=== PATIENT | male | born 1960 | race Caucasian/White ===

== ENCOUNTER 2017-03-24 16:49 | Emergency (ER) | payer OTHER, MEDICAID ==
[2017-03-24] MEDS ORDERED: Nitroglycerin 2% Oint 1 GM UD Packet TOP ONE (17:06)
[2017-03-24] MEDS ORDERED: Sodium Chloride 0.9% 10 ML Syringe FLUSH PRN (17:10)
--- NOTE | 2017-03-24 17:18 | EDM.PDOC ---
[id number]: chest pain Time Seen by Provider: 03/24/17 17:00 Source: Reports: Patient, Family History Limitations: Reports: No limitations - History of Present Illness INITIAL COMMENTS - FREE TEXT/NARRATIVE: Georges comes to [facility] ED with a hx of precordial chest pain with radiation into the neck, sweats, and malaise. He was drinking at a tavern when sxs spontaneously began. He is aware of CAD, status post CABG x 1 approximately 4 years ago and PCTA x 10 with multiple stenting, most recently at the [facility] in [place], [place] approximately 1 mos ago. He reportedly was advised that he was a poor candidate for repeat CABG. He has taken ASA 325 mg and TNG SL x 3, and is on Coumadin. - Related Data Allergies/ADRs: Allergies Allergy/AdvReac Type Severity Reaction Status Date / Time No Known Allergies Allergy Verified 03/24/17 17:48 Home Meds: Home Meds Aspirin 325 mg PO DAILY 03/24/17 [History] Diazepam [Valium] 5 mg PO TID 03/24/17 [History] Metoprolol Tartrate 25 mg PO DAILY 03/24/17 [History] Nitroglycerin [Nitrostat] 0.4 mg SL ASDIRECTED PRN 03/24/17 [History] Potassium Chloride 10 meq PO DAILY 03/24/17 [History] Simvastatin [Zocor] 40 mg PO BEDTIME 03/24/17 [History] Warfarin Sliding Scale [Coumadin Sliding Scale] 03/24/17 [History] traMADol [Ultram] 50 mg PO TID 03/24/17 [History] Past Medical History Cardiovascular History: Reports: Angina, Bypass, CAD, [place], PTCA Respiratory History: Reports: Sleep apnea Musculoskeletal History: Reports: Other (see below) (trauma surgery to L forearm ) Social & Family History - Tobacco Use Smoking Status *Q: Current Some Day Smoker - Alcohol Use Alcohol Use History: Yes ED ROS GENERAL - Review of Systems Review Of Systems: See Below Constitutional: Reports: malaise, diaphoresis HEENT: Reports: No symptoms Respiratory: Reports: No Symptoms, Other (hx HUSSAIN, currently off machine) Cardiovascular: Reports: Chest pain Endocrine: Reports: no symptoms GI/Abdominal: Reports: No symptoms : Reports: no symptoms Musculoskeletal: Reports: no symptoms Skin: Reports: other (edema, "poor veins") Neurological: Reports: No Symptoms Psychiatric: Reports: No symptoms Hematologic/Lymphatic: Reports: no symptoms Immunologic: Reports: no symptoms ED EXAM, GENERAL - Physical Exam Exam: See Below Exam Limited By: No limitations General Appearance: alert, WD/WN, anxious, moderate distress Eye Exam: bilateral eye: normal inspection Ears: normal external exam, normal canal, normal TMs Nose: normal inspection Throat/Mouth: Normal inspection, Normal lips, Normal oropharynx Head: normocephalic Neck: normal inspection, supple, non-tender, full range of motion Respiratory/Chest: lungs clear, normal breath sounds, no accessory muscle use, chest non-tender Cardiovascular: normal peripheral pulses, regular rate, rhythm, no murmur, other (1+ pitting edema) GI/Abdominal: normal bowel sounds, soft, non tender, no organomegaly, no distention, no mass (Male) Exam: No hernia Rectal (Males) Exam: Deferred Back Exam: normal inspection Extremities: normal range of motion, non-tender, normal capillary refill Neurological: alert, oriented, CN II-XII intact, no motor/sensory deficits Psychiatric: normal affect, anxious Skin Exam: Warm, Dry, Intact Lymphatic: no adenopathy ED CARDIOLOGY PROCEDURES - Additional/Other Procedure(s) Other (Free Text) Procedure(s): I inserted an IOA into the proximal L lower leg without difficulty for veinous access. There was good aspiration and flow with IV pump. Course - Vital Signs Text/Narrative:: Following admission to the [facility] ED, a 12 lead ekg noted NSR w occ PVC; a port chest x ray noted mild cardiac enlargement with no infiltrates; efforts at IV insertion were unsuccessful by RN and [employer]PERVISOR, and I inserted a IOA in the L lower leg. NS was provided, with MS 8 mg IV and a TriDil Drip was started to control anginal sxs; an additional MS 8 mg IM was administered 25 min later for pain management with improvement; CBC noted Hgb 15.8 gm, WBC 8,600, plts 183,000; PT 9.4/INR 0.93; mildly elevated LFT; Troponin I <0.01; BNP 45; Case was discussed with Dr Arnold from [facility], will administer Heparin 5000 U IV, and Plavix 600 mg po, and transfer to [facility] ICU. Last Recorded V/S: Last Vital Signs Temp Pulse 97 03/24/17 16:50 Resp 18 03/24/17 16:50 BP 145/84 H 03/24/17 18:23 Pulse Ox 96 03/24/17 16:50 - Orders/Labs/Meds Orders: Active Orders 24 hr Category Date Time Status EKG Documentation Completion [RC] ASDIRECTED Care 03/24/17 17:11 Active EKG Documentation Completion [RC] ASDIRECTED Care 03/24/17 18:30 Active Chest 1V Frontal [CR] Stat Exams 03/24/17 17:10 Taken Peripheral IV Insertion Adult [OM.PC] Routine Oth 03/24/17 17:10 Ordered EKG 12 Lead [EK] Routine Ther 03/24/17 17:10 Ordered EKG 12 Lead [EK] Routine Ther 03/24/17 18:30 Ordered Labs: Laboratory Tests 03/24/17 03/24/17 03/24/17 Range/Units 17:50 17:50 17:50 WBC 8.6 (4.5-12.0) X10-3/uL RBC 5.10 (4.30-5.75) x10(6)uL Hgb 15.8 H (11.5-15.5) g/dL Hct 47.3 (30.0-51.3) % MCV 92.7 (80-96) fL MCH 30.9 (27.7-33.6) pg MCHC 33.3 (32.2-35.4) g/dL RDW 13.8 (11.5-15.5) % Plt Count 183 (125-369) X10(3)uL MPV 9.7 (7.4-10.4) fL Neut % (Auto) 46.4 (46-82) % Lymph % (Auto) 44.2 H (13-37) % [place] % (Auto) 6.8 (4-12) % Eos % (Auto) 2 (1.0-5.0) % Baso % (Auto) 1 (0-2) % Neut # (Auto) 4.0 (1.6-8.3) # Lymph # (Auto) 3.8 (0.6-5.0) # [place] # (Auto) 0.6 (0.0-1.3) # Eos # (Auto) 0.1 (0.0-0.8) # Baso # (Auto) 0.1 (0.0-0.2) # PT (8.7-11.1) INR (0.89-1.13) Sodium 138 (135-145) mmol/L Potassium 4.0 (3.5-5.3) mmol/L Chloride 105 (100-110) mmol/L Carbon Dioxide 18 L (23-29) mmol/L BUN 16 (5-20) mg/dL Creatinine 1.0 (0.6-1.3) mg/dL Est Cr Clr Drug Dosing TNP Estimated GFR (MDRD) > 60 (>60) BUN/Creatinine Ratio 16.0 (9-20) Glucose 98 (80-116) mg/dL Calcium 8.3 L (8.6-10.2) mg/dL Total Bilirubin 0.5 (0.1-1.3) mg/dL AST 64 H (5-27) IU/L ALT 68 H (14-26) IU/L Alkaline Phosphatase 77 (56-112) IU/L Troponin I < 0.01 L (0.02-0.06) NG/ML B-Natriuretic Peptide (0-100) pg/mL Total Protein 7.7 (6.0-8.0) g/dL Albumin 3.8 (3.5-5.2) g/dL Globulin 3.9 g/dL Albumin/Globulin Ratio 1.0 Ethyl Alcohol (<0.01) % 03/24/17 03/24/17 03/24/17 Range/Units 17:50 17:50 17:50 WBC (4.5-12.0) X10-3/uL RBC (4.30-5.75) x10(6)uL Hgb (11.5-15.5) g/dL Hct (30.0-51.3) % MCV (80-96) fL MCH (27.7-33.6) pg MCHC (32.2-35.4) g/dL RDW (11.5-15.5) % Plt Count (125-369) X10(3)uL MPV (7.4-10.4) fL Neut % (Auto) (46-82) % Lymph % (Auto) (13-37) % [place] % (Auto) (4-12) % Eos % (Auto) (1.0-5.0) % Baso % (Auto) (0-2) % Neut # (Auto) (1.6-8.3) # Lymph # (Auto) (0.6-5.0) # [place] # (Auto) (0.0-1.3) # Eos # (Auto) (0.0-0.8) # Baso # (Auto) (0.0-0.2) # PT 9.4 (8.7-11.1) INR 0.93 (0.89-1.13) Sodium (135-145) mmol/L Potassium (3.5-5.3) mmol/L Chloride (100-110) mmol/L Carbon Dioxide (23-29) mmol/L BUN (5-20) mg/dL Creatinine (0.6-1.3) mg/dL Est Cr Clr Drug Dosing Estimated GFR (MDRD) (>60) BUN/Creatinine Ratio (9-20) Glucose (80-116) mg/dL Calcium (8.6-10.2) mg/dL Total Bilirubin (0.1-1.3) mg/dL AST (5-27) IU/L ALT (14-26) IU/L Alkaline Phosphatase (56-112) IU/L Troponin I (0.02-0.06) NG/ML B-Natriuretic Peptide 45 (0-100) pg/mL Total Protein (6.0-8.0) g/dL Albumin (3.5-5.2) g/dL Globulin g/dL Albumin/Globulin Ratio Ethyl Alcohol 0.19 H* (<0.01) % Meds: Medications Discontinued Medications Generic Name Dose Route Start Last Admin Trade Name Freq PRN Reason Stop Dose Admin Clopidogrel Bisulfate 600 mg 03/24/17 19:19 03/24/17 19:25 Plavix PO 03/24/17 19:20 600 mg ONETIME ONE Administration Heparin Sodium (Porcine) 5,000 units 03/24/17 19:37 03/24/17 19:45 Heparin Sodium IVPUSH 03/24/17 19:38 5,000 units ONETIME ONE Administration Nitroglycerin/Dextrose 25 mg in 250 mls @ 6 mls/hr 03/24/17 17:30 03/24/17 19 :55 Nitroglycerin 25 Mg/D5w 250 Ml IV 15 mcg/min TITRATE ADAN 9 mls/hr Protocol Titration 10 MCG/MIN Morphine Sulfate 8 mg 03/24/17 17:28 03/24/17 17:36 Morphine IVPUSH 03/24/17 17:29 8 mg ONETIME ONE Administration Morphine Sulfate Confirm 03/24/17 17:29 03/24/17 18:44 Morphine Administered 03/24/17 17:30 Not Given Dose 10 mg .ROUTE .STK-MED ONE Morphine Sulfate 8 mg 03/24/17 17:33 03/24/17 18:47 Morphine IVPUSH 03/24/17 17:34 Not Given ONETIME ONE Morphine Sulfate 8 mg 03/24/17 17:50 03/24/17 17:55 Morphine IM 03/24/17 17:51 8 mg ONETIME ONE Administration Morphine Sulfate 8 mg 03/24/17 19:39 03/24/17 19:45 Morphine IM 03/24/17 19:40 8 mg ONETIME ONE Administration Nitroglycerin 1 gm 03/24/17 17:06 03/24/17 17:14 Nitro-Bid 2% TOP 03/24/17 17:07 1 gm ONETIME ONE Administration Sodium Chloride 10 ml 03/24/17 17:10 Saline Flush FLUSH ASDIRECTED PRN Keep Vein Open Departure - Departure Time of Disposition: 20:10 Disposition: DC/Tfer to Other 70 Reason for Transfer *Q: Primary PCI Indicated Condition: poor Clinical Impression: Angina pectoris, unstable, Alcohol abuse Referrals: PCP,Not In Area [Primary Care Provider] - Forms: ED Department Discharge, Interfacility Transfer [facility] Critical Care Note - Critical Care Note Total Time (mins): 75 - Problem List & Annotations (1) Angina pectoris, unstable SNOMED Code(s): 7556393 Code(s): I20.0 - UNSTABLE ANGINA Status: Acute Annotation/Comment:: 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 MS 8 mg was administered prior to transfer. - Problem List Review Problem List Initiated/Reviewed/Updated: Yes - My Orders Last 24 Hours: My Active Orders 03/24/17 17:10 Chest 1V Frontal [CR] Stat Peripheral IV Insertion Adult [OM.PC] Routine EKG 12 Lead [EK] Routine 03/24/17 17:11 EKG Documentation Completion [RC] ASDIRECTED 03/24/17 18:30 EKG Documentation Completion [RC] ASDIRECTED EKG 12 Lead [EK] Routine - Assessment/Plan Last 24 Hours: My Active Orders 03/24/17 17:10 Chest 1V Frontal [CR] Stat Peripheral IV Insertion Adult [OM.PC] Routine EKG 12 Lead [EK] Routine 03/24/17 17:11 EKG Documentation Completion [RC] ASDIRECTED 03/24/17 18:30 EKG Documentation Completion [RC] ASDIRECTED EKG 12 Lead [EK] Routine Plan: Transfer to [facility]
[2017-03-24] MEDS ORDERED: Morphine 10 MG/ML Syringe IVPUSH ONE ×2 (17:28→17:33)
[2017-03-24] MEDS ORDERED: Morphine 10 MG/ML Syringe ONE (17:29)
[2017-03-24] MEDS ORDERED: Nitroglycerin/D5W 25 MG/250 ML BOTTLE IV SCH (17:30)
[2017-03-24] MEDS ORDERED: Morphine 10 MG/ML Syringe IM ONE ×2 (17:50→19:39)
[2017-03-24 18:25] VITALS: BP 145/84
[2017-03-24] MEDS ORDERED: Clopidogrel 75 MG Tab PO ONE (19:19)
[2017-03-24] MEDS ORDERED: Heparin Sodium 5,000 Units/ML Vial IVPUSH ONE (19:37)
--- NOTE | 2017-03-26 10:46 | CR ---
INDICATION: Chest pain. CHEST: An AP upright view of the chest was obtained 03/24/2017. No comparisons were available. The heart appeared slightly prominent in size with evidence of previous cardiac surgery. Median sternotomy is noted. Overlying EKG leads are noted. Lungs appear somewhat hyperaerated, suggested COPD. This should be correlated clinically. There is some flattening of the left hemidiaphragm additionally, compatible with COPD. An active infiltrate or effusion was not identified. IMPRESSION: 1. No definite acute process. 2. ASHD with mild cardiomegaly. 3. COPD. 4. Post cardiac surgery. MTDD
== END 2017-03-24 20:25 | disposition other institution (70) ==
LOC: FB.ED 16:49
DX: I25.700 Atherosclerosis of coronary artery bypass graft(s), unspecified, with unstable angina pectoris (principal); F10.10 Alcohol abuse, uncomplicated; I25.2 Old myocardial infarction; F17.210 Nicotine dependence, cigarettes, uncomplicated; Z79.82 Long term (current) use of aspirin; Z79.01 Long term (current) use of anticoagulants; Z79.899 Other long term (current) drug therapy; Z98.61 Coronary angioplasty status
CPT/HCPCS: 36410; 36415; 71010; 80053; 83880; 84484; 85025; 85610; 93005; 96365; 96366; 96372; 96375; 96376; 99285; A9270; G0480; J1644; J2270

== ENCOUNTER 2017-03-28 13:26 | Emergency (ER) | payer MEDICAID, OTHER ==
[2017-03-28 13:41] VITALS: BP 125/78
[2017-03-28] MEDS ORDERED: Acetaminophen/HYDROcodone 325-5 MG Tab PO ONE (13:50)
[2017-03-28] MEDS ORDERED: Cephalexin 500 MG Cap PO ONE (13:50)
--- NOTE | 2017-03-28 14:01 | EDM.PDOC ---
ED HPI GENERAL MEDICAL PROBLEM - General Chief Complaint: Lower Extremity Injury/Pain Stated Complaint: LEG PAIN LEFT Time Seen by Provider: 03/28/17 13:45 Source of Information: Reports: Patient History Limitations: Reports: No Limitations - History of Present Illness INITIAL COMMENTS - FREE TEXT/NARRATIVE: 57 yo male was recently seen here in the ER for CP and had an IO started for venous access. Here for pain meds due to ongoing pain in the area of his IO placement. He was transported to [place] and got out of that hospital yesterday. He is new in the area and has not yet gotten established with a local provider. When he left the hospital he asked for pain meds and was told he would need to get them from his primary care provider. He denies fever or chills. Has noticed progressive redness of the affected leg near the sites of his IO placement. Onset Date: 03/27/17 Duration: Hour(s):, Getting Worse Location: Reports: Lower Extremity, Left Quality: Reports: Ache Severity: Moderate Improves with: Reports: None Worsens with: Reports: None Context: Reports: Other (I/O placement to area a few days ago.) Associated Symptoms: Reports: Other (Some area erythema.) Treatments GM MOBILE: Reports: Other (see below) (none) Right Lower Leg Pain Score (Numeric/FACES): 8 - Related Data Allergies Allergy/AdvReac Type Severity Reaction Status Date / Time No Known Allergies Allergy Verified 03/28/17 13:39 Home Meds: Home Meds Aspirin 325 mg PO DAILY 03/24/17 [History] Diazepam [Valium] 5 mg PO TID 03/24/17 [History] Metoprolol Tartrate 25 mg PO DAILY 03/24/17 [History] Nitroglycerin [Nitrostat] 0.4 mg SL ASDIRECTED PRN 03/24/17 [History] Potassium Chloride 10 meq PO DAILY 03/24/17 [History] Simvastatin [Zocor] 40 mg PO BEDTIME 03/24/17 [History] traMADol [Ultram] 50 mg PO TID 03/24/17 [History] Acetaminophen/HYDROcodone [[place] 325-5 MG] 1 - 2 tab PO Q6H PRN #20 tab [Rx] Aspirin 325 mg PO DAILY 03/28/17 [History] Cephalexin [IJD: Cephalexin] 500 mg PO Q6H #30 cap 03/28/17 [Rx] Clopidogrel [Plavix] 75 mg PO DAILY 03/28/17 [History] Past Medical History Cardiovascular History: Reports: Angina, Bypass, CAD, Heart Failure, High Cholesterol, Hypertension, [place], PTCA Respiratory History: Reports: COPD, Sleep Apnea Other Respiratory History: supplemental oxygen at home Musculoskeletal History: Reports: Other (See Below) - Past Surgical History Cardiovascular Surgical History: Reports: Coronary Artery Bypass, Coronary Artery Stent Social & Family History - Tobacco Use Smoking Status *Q: Former Smoker Years of Tobacco use: 40 Packs/Tins Daily: 1 Used Tobacco, but Quit: Yes Month Tobacco Last Used: since last Friday Second Hand Smoke Exposure: Yes - Caffeine Use Caffeine Use: Reports: None - Recreational Drug Use Recreational Drug Use: No Review of Systems - Review of Systems Review Of Systems: See Below Constitutional: Reports: No Symptoms Respiratory: Reports: No Symptoms Cardiovascular: Reports: No Symptoms GI/Abdominal: Reports: No Symptoms Musculoskeletal: Reports: Leg Pain (L johnson) Skin: Reports: Erythema (near site of I/O placement) Neurological: Reports: No Symptoms Trauma Exam - Physical Exam Exam: See Below Exam Limited By: No Limitations General Appearance: Reports: Alert, WD/WN, No Apparent Distress Head: Reports: Atraumatic, Normocephalic Extremities: Tenderness (L anterior johnson.) Neurologic: Reports: No Motor/Sensory Deficits, Alert, Normal Mood/Affect, Oriented x 3 Skin: Reports: Warm/Dry, Other (erythema to the left anterior johnson associated with some increased warmth. No swelling.) Course - Vital Signs Text/Narrative:: Keflex 500 mg po, [place] 1 po Last Recorded V/S: Last Vital Signs Temp 36.6 C 03/28/17 13:40 Pulse 110 H 03/28/17 13:40 Resp 20 03/28/17 13:40 BP 125/78 03/28/17 13:40 Pulse Ox 98 03/28/17 13:40 - Orders/Labs/Meds Meds: Medications Discontinued Medications Generic Name Dose Route Start Last Admin Trade Name Freq PRN Reason Stop Dose Admin Hydrocodone Bitart/Acetaminophen 1 tab 03/28/17 13:50 03/28/17 13:58 [place] 325-5 Mg PO 03/28/17 13:51 1 tab ONETIME ONE Administration Cephalexin 500 mg 03/28/17 13:50 03/28/17 13:58 Keflex PO 03/28/17 13:51 500 mg ONETIME ONE Administration Departure - Departure Time of Disposition: 14:04 Disposition: Home, Self-Care 01 Condition: fair Clinical Impression: Cellulitis Qualifiers: Site of cellulitis: extremity Site of cellulitis of extremity: lower extremity Laterality: left Qualified Code(s): L03.116 - Cellulitis of left lower limb - Discharge Information Prescriptions: Acetaminophen/HYDROcodone [[place] 325-5 MG] 1 - 2 tab PO Q6H PRN #20 tab PRN Reason: Pain Cephalexin [IJD: Cephalexin] 500 mg PO Q6H #30 cap Referrals: Kevin Mckenna MD [Primary Care Provider] - Forms: ED Department Discharge Care Plan Goals: Keep left leg elevated. Take cephalexin every 6 hrs. Take acetaminophen or [place] for pain relief as needed. Recheck on Friday in urgent care.
== END 2017-03-28 14:05 | disposition home or self-care (01) ==
LOC: FB.ED 13:26
DX: L03.116 Cellulitis of left lower limb (principal); I25.2 Old myocardial infarction; I11.0 Hypertensive heart disease with heart failure; I50.9 Heart failure, unspecified; I25.810 Atherosclerosis of coronary artery bypass graft(s) without angina pectoris; E78.00 Pure hypercholesterolemia, unspecified; Z79.82 Long term (current) use of aspirin; Z79.899 Other long term (current) drug therapy; Z95.1 Presence of aortocoronary bypass graft; Z95.5 Presence of coronary angioplasty implant and graft; Z87.891 Personal history of nicotine dependence
CPT/HCPCS: 99283; A9270

== ENCOUNTER 2017-04-20 21:50 | Emergency (ER) | payer MEDICAID ==
[2017-04-20 22:58] VITALS: BP 130/76
--- NOTE | 2017-04-21 02:52 | ER ---
DATE SEEN: 04/20/2017 REASON FOR VISIT: Pain, right foot. HISTORY OF PRESENT ILLNESS: A 57-year-old male who fell from the second rung of a ladder, landed on the right foot, felt a pop, complains of pain and swelling. This happened today. REVIEW OF SYSTEMS: No fever. PAST MEDICAL HISTORY: CHF, alcohol abuse, COPD. CURRENT MEDICATIONS: Reviewed. ALLERGIES: No known allergies. PHYSICAL EXAMINATIONS: GENERAL: Nontoxic, overweight. VITAL SIGNS: Blood pressure is 144/78, temperature is 98.0. EXTREMITIES: Right foot showed moderate swelling and effusion of the dorsum and exquisite tenderness to palpation but normal peripheral pulses and capillary refills. DIAGNOSTIC DATA: X-ray of the right foot was negative. IMPRESSION: Sprain, foot. PLAN: Ice, elevation, ibuprofen as needed, and return to the clinic as needed. /[id number] YAIR/SHAILESH
--- NOTE | 2017-04-21 10:35 | CR ---
INDICATION: Pain after jumping off a ladder and hearing a "pop". RIGHT FOOT: Three views of the right foot revealed a moderate to moderately large plantar calcaneal spur. Minimal degenerative changes are noted at the first metatarsophalangeal joint. A definite fracture, dislocation, or other significant bone or joint abnormality was not identified. The Achilles tendon has an intact appearance. IMPRESSION: No acute fracture or dislocation. [facility]
== END 2017-04-20 22:56 | disposition home or self-care (01) ==
LOC: FB.ED 21:50
DX: S93.601A Unspecified sprain of right foot, initial encounter (principal); W11.XXXA Fall on and from ladder, initial encounter; I50.9 Heart failure, unspecified; J44.9 Chronic obstructive pulmonary disease, unspecified
CPT/HCPCS: 73630-RT; 99283

== ENCOUNTER 2017-06-17 17:51 | Emergency (ER) | payer MEDICAID ==
[2017-06-17 18:03] VITALS: BP 154/78
--- NOTE | 2017-06-17 18:11 | EDM.PDOC ---
ED HPI GENERAL MEDICAL PROBLEM - General Stated Complaint: LEG PAIN Time Seen by Provider: 06/17/17 17:51 Source of Information: Reports: Patient, Family History Limitations: Reports: Respiratory Distress - History of Present Illness INITIAL COMMENTS - FREE TEXT/NARRATIVE: 57 years old w m with a h/o COPD came to the ed due lower extremity pain and swelling, unable to ambulate. Pt was doing the "Walk for the kids" from [place] to [facility] a few days ago, after which the legs were starting to swell and be painful. Pt denies CHF, DVT, LE or any other acute med issues but COPD for whic he takes 3 liter O2 by NC. No Trauma. Onset: Gradual, Unknown/Unsure Onset Date: 06/13/17 Onset Time: 08:00 Duration: Day(s):, Getting Worse Location: Reports: Lower Extremity, Left, Lower Extremity, Right Quality: Reports: Burning, Dull, Pressure Severity: Moderate Improves with: Reports: Cold Therapy, Medication, Other (elevation) Worsens with: Reports: Other (walking) Context: Reports: Other (walking for 9 hours) Right Feet Pain Score (Numeric/FACES): 9 - Related Data Allergies Allergy/AdvReac Type Severity Reaction Status Date / Time ketorolac [From Toradol] Allergy Vomiting Verified 06/17/17 20:45 Home Meds: Home Meds Diazepam [Valium] 5 mg PO TID 03/24/17 [History] Metoprolol Tartrate 50 mg PO DAILY 03/24/17 [History] Nitroglycerin [Nitrostat] 0.4 mg SL ASDIRECTED PRN 03/24/17 [History] Potassium Chloride 10 meq PO DAILY 03/24/17 [History] Simvastatin [Zocor] 40 mg PO BEDTIME 03/24/17 [History] traMADol [Ultram] 50 mg PO TID 03/24/17 [History] Cephalexin [IJD: Cephalexin] 500 mg PO Q6H #30 cap 03/28/17 [Rx] Clopidogrel [Plavix] 75 mg PO DAILY 03/28/17 [History] Aspirin 1 tab PO DAILY 06/17/17 [History] Past Medical History HEENT History: Reports: Cataract, Impaired Vision Other HEENT History: wears glasses Cardiovascular History: Reports: Angina, Bypass, CAD, Heart Failure, High Cholesterol, Hypertension, [place], PTCA, Stents Respiratory History: Reports: COPD, Sleep Apnea Other Respiratory History: supplemental oxygen at home Musculoskeletal History: Reports: Other (See Below) - Infectious Disease History Infectious Disease History: Reports: Chicken Pox, Measles - Past Surgical History Cardiovascular Surgical History: Reports: Coronary Artery Bypass, Coronary Artery Stent Social & Family History - Tobacco Use Smoking Status *Q: Former Smoker Years of Tobacco use: 25 Packs/Tins Daily: 1 Used Tobacco, but Quit: Yes Month Tobacco Last Used: [email or web address] Second Hand Smoke Exposure: Yes - Caffeine Use Caffeine Use: Reports: Coffee - Recreational Drug Use Recreational Drug Use: No ED ROS GENERAL - Review of Systems Review Of Systems: See Below Constitutional: Reports: No Symptoms HEENT: Reports: No Symptoms Respiratory: Reports: No Symptoms Cardiovascular: Reports: No Symptoms Endocrine: Reports: No Symptoms GI/Abdominal: Reports: No Symptoms : Reports: No Symptoms Musculoskeletal: Reports: Muscle Pain (lower extr.) Skin: Reports: No Symptoms Neurological: Reports: No Symptoms Psychiatric: Reports: No Symptoms Hematologic/Lymphatic: Reports: No Symptoms Immunologic: Reports: No Symptoms ED EXAM, GENERAL - Physical Exam Exam: See Below Exam Limited By: Other (leg pain) General Appearance: Alert, WD/WN, Mild Distress, Moderate Distress Eye Exam: Bilateral Eye: Normal Inspection Ears: Normal External Exam Ear Exam: Bilateral Ear: Auricle Normal Nose: Normal Inspection, Normal Mucosa Throat/Mouth: Normal Inspection, Normal Lips Head: Atraumatic, Normocephalic Neck: Normal Inspection, Supple, Non-Tender Respiratory/Chest: No Respiratory Distress, Lungs Clear, Normal Breath Sounds, No Accessory Muscle Use, Chest Non-Tender Cardiovascular: Normal Peripheral Pulses, Regular Rate, Rhythm, No JVD, No Murmur, Other (nonpitting edema lower extr. ) Peripheral Pulses: 1+: Femoral (L), Femoral (R) GI/Abdominal: Normal Bowel Sounds, Soft, Non-Tender, No Organomegaly, No Abnormal Bruit, No Mass (Male) Exam: Deferred Rectal (Males) Exam: Deferred Back Exam: Normal Inspection, Full Range of Motion Extremities: Pedal Edema (nonpitting), Shannan's Sign (negative), Leg Pain Neurological: Alert, Oriented, CN II-XII Intact, Normal Cognition, No Motor/ Sensory Deficits, Abnormal Gait (due to lowr extr.edema) Psychiatric: Normal Affect, Normal Mood Skin Exam: Warm, Dry, Intact, Normal Color, No Rash Lymphatic: No Adenopathy Course - Vital Signs Text/Narrative:: 57 years old w m with a h/o COPD came to the ed due lower extremity pain and swelling, unable to ambulate. Pt was doing the "Walk [place] the kids" from [place] to [facility] a few days ago, after which the legs were starting to swell and be painful. Pt denies CHF, DVT, LE or any other acute med issues but COPD for whic he takes 3 liter O2 by NC. No Trauma. The allergy list was not updated at the time. PE: WNWD WM with non pitting edema lower extremities. Imaging: US doppler lower extremities: Neg for DVT CXR: NAD Labs: CBC, BMP, Troponin wer all neg. BNP was 150 and the Ca was 8.5 Impression: Lymphedema both lower extremities Tx: Ultram (pt is allergic to Motrin/Toradol), TOÑO Plan: D/C with instructions, TOÑO wrap at daytime, Bryn socks. Last Recorded V/S: Last Vital Signs Temp 36.3 C 06/17/17 20:55 Pulse 86 06/17/17 20:55 Resp 16 06/17/17 20:55 BP 154/78 H 06/17/17 18:00 Pulse Ox 99 06/17/17 20:55 - Orders/Labs/Meds Orders: Active Orders 24 hr Category Date Time Status CXR [Chest 1V Frontal] [CR] Stat Exams 06/17/17 17:56 Taken VL Duplex Lwr Ext Veins Comp [US] Stat Exams 06/17/17 19:21 Taken CULTURE BLOOD [BC] Urgent Lab 06/17/17 18:35 Received Labs: Laboratory Tests 06/17/17 06/17/17 06/17/17 Range/Units 18:35 18:35 18:35 WBC 6.7 (4.5-12.0) X10-3/uL RBC 4.85 (4.30-5.75) x10(6)uL Hgb 14.8 (11.5-15.5) g/dL Hct 45.1 (30.0-51.3) % MCV 93.0 (80-96) fL MCH 30.5 (27.7-33.6) pg MCHC 32.8 (32.2-35.4) g/dL RDW 13.4 (11.5-15.5) % Plt Count 214 (125-369) X10(3)uL MPV 9.4 (7.4-10.4) fL Neut % (Auto) 49.1 (46-82) % Lymph % (Auto) 41.2 H (13-37) % [place] % (Auto) 6.7 (4-12) % Eos % (Auto) 2 (1.0-5.0) % Baso % (Auto) 1 (0-2) % Neut # (Auto) 3.4 (1.6-8.3) # Lymph # (Auto) 2.7 (0.6-5.0) # [place] # (Auto) 0.4 (0.0-1.3) # Eos # (Auto) 0.1 (0.0-0.8) # Baso # (Auto) 0.1 (0.0-0.2) # Sodium 142 (135-145) mmol/L Potassium 4.2 (3.5-5.3) mmol/L Chloride 107 (100-110) mmol/L Carbon Dioxide 26 (23-29) mmol/L BUN 9 (5-20) mg/dL Creatinine 0.7 (0.6-1.3) mg/dL Est Cr Clr Drug Dosing TNP Estimated GFR (MDRD) > 60 (>60) BUN/Creatinine Ratio 12.9 (9-20) Glucose 92 (80-116) mg/dL Calcium 8.4 L (8.6-10.2) mg/dL Troponin I (0.02-0.06) NG/ML B-Natriuretic Peptide 150 H (0-100) pg/mL 06/17/17 Range/Units 18:35 WBC (4.5-12.0) X10-3/uL RBC (4.30-5.75) x10(6)uL Hgb (11.5-15.5) g/dL Hct (30.0-51.3) % MCV (80-96) fL MCH (27.7-33.6) pg MCHC (32.2-35.4) g/dL RDW (11.5-15.5) % Plt Count (125-369) X10(3)uL MPV (7.4-10.4) fL Neut % (Auto) (46-82) % Lymph % (Auto) (13-37) % [place] % (Auto) (4-12) % Eos % (Auto) (1.0-5.0) % Baso % (Auto) (0-2) % Neut # (Auto) (1.6-8.3) # Lymph # (Auto) (0.6-5.0) # [place] # (Auto) (0.0-1.3) # Eos # (Auto) (0.0-0.8) # Baso # (Auto) (0.0-0.2) # Sodium (135-145) mmol/L Potassium (3.5-5.3) mmol/L Chloride (100-110) mmol/L Carbon Dioxide (23-29) mmol/L BUN (5-20) mg/dL Creatinine (0.6-1.3) mg/dL Est Cr Clr Drug Dosing Estimated GFR (MDRD) (>60) BUN/Creatinine Ratio (9-20) Glucose (80-116) mg/dL Calcium (8.6-10.2) mg/dL Troponin I < 0.01 L (0.02-0.06) NG/ML B-Natriuretic Peptide (0-100) pg/mL Meds: Medications Discontinued Medications Generic Name Dose Route Start Last Admin Trade Name Freq PRN Reason Stop Dose Admin Ketorolac Tromethamine 60 mg 06/17/17 19:13 06/17/17 20:44 Toradol IM 06/17/17 19:14 Not Given ONETIME ONE Tramadol HCl 100 mg 06/17/17 20:24 06/17/17 20:47 Ultram PO 06/17/17 20:25 100 mg ONETIME ONE Administration Departure - Departure Time of Disposition: 20:18 Disposition: Home, Self-Care 01 Condition: Good Clinical Impression: Lymphedema of both lower extremities - Discharge Information Instructions: Lymphedema Referrals: Kevin Mckenna MD [Primary Care Provider] - Forms: ED Department Discharge Additional Instructions: Rest, ICE and elevation, TOÑO wrap during the daytime. Please take Ultram for pain ( as you are allergic to toradol), please f/u, come back if worse. - My Orders Last 24 Hours: My Active Orders 06/17/17 17:56 CXR [Chest 1V Frontal] [CR] Stat 06/17/17 18:35 CULTURE BLOOD [BC] Urgent 06/17/17 19:21 VL Duplex Lwr Ext Veins Comp [US] Stat - Assessment/Plan Last 24 Hours: My Active Orders 06/17/17 17:56 CXR [Chest 1V Frontal] [CR] Stat 06/17/17 18:35 CULTURE BLOOD [BC] Urgent 06/17/17 19:21 VL Duplex Lwr Ext Veins Comp [US] Stat
[2017-06-17] MEDS ORDERED: Ketorolac 60 MG/2 ML SDV IM ONE (19:13)
[2017-06-17] MEDS ORDERED: traMADol 50 MG Tab PO ONE ×2 (20:24→20:26)
--- NOTE | 2017-06-18 10:44 | US ---
INDICATION: Swelling of both lower extremities. Question DVT. DUPLEX ULTRASOUND, RIGHT LOWER EXTREMITY VEINS: Utilizing 2-D real time, duplex Doppler spectral analysis, and color flow imaging, examination of the right lower extremity veins was obtained. It was difficult due to the patient' s edema in the calf areas. Portions of the calf deep veins were not adequately visualized. As visualized, they appear to be patent with compressibility and color flow. Valvular competence was not evaluated. IMPRESSION: No evidence of DVT. DUPLEX ULTRASOUND, LEFT LOWER EXTREMITY VEINS: Utilizing 2-D real time, duplex Doppler spectral analysis, and color flow imaging, examination of the left lower extremity veins was obtained. It was difficult due to the patient's edema in the calf areas. Portions of the calf deep veins were not adequately visualized. As visualized, they appear to be patent with compressibility and color flow. Valvular competence was not evaluated. IMPRESSION: No evidence of DVT. MTDD
--- NOTE | 2017-06-18 11:01 | CR ---
INDICATION: Leg swelling. CHEST: An AP upright portable view of the chest was obtained 06/17/2017 and was compared with 03/24/2017. The previous study was also an AP upright view. The heart appears slightly increased in size compared with the previous study. It does appear to be slightly enlarged. Evidence of previous median sternotomy is again noted. The aorta is tortuous and calcified in the arch area. The lungs appear to be somewhat hyperaerated. No evidence of CHF is identified , however. Also, no evidence of an active infiltrate or effusion was seen. There is an appearance of a semi-circular density behind the heart at the border of the spine on the left, in the left lower lobe area. This could represent a nodular mass in the left lower lobe. An area of pneumonia could also be present. Follow-up PA and lateral views of the chest may be helpful for further evaluation, as well as comparison with chest x-rays prior to March of 2017, and also possibly CT without and with IV contrast as clinically necessary. This area of nodular density measures up to approximately 39 mm. IMPRESSION: 1. No acute process. 2. Probable progressive ASHD, slightly increased heart size suggested. 3. Probable COPD. 4. Post median sternotomy. 5. There is a density behind the heart of questionable etiology. It may have been present on the previous study, but was not defined as such. Etiology indeterminate. The possibility of a mass cannot be excluded. This is seen in the area of the left lower lobe, behind the heart at the border of the spine. A lateral view of the chest - PA and lateral views - may be helpful, as well as x-rays of the chest prior to March of 2017, as well as possibly CT of the chest without and with contrast as necessary. Report was called to Dr. Brush at [address] Dwyer, 06/18/2017. [facility]
== END 2017-06-17 20:55 | disposition home or self-care (01) ==
LOC: FB.ED 17:51
DX: I89.0 Lymphedema, not elsewhere classified (principal); I11.0 Hypertensive heart disease with heart failure; I50.9 Heart failure, unspecified; I25.10 Atherosclerotic heart disease of native coronary artery without angina pectoris; J44.9 Chronic obstructive pulmonary disease, unspecified; E78.00 Pure hypercholesterolemia, unspecified; I25.2 Old myocardial infarction; Z79.899 Other long term (current) drug therapy; Z79.891 Long term (current) use of opiate analgesic; Z95.5 Presence of coronary angioplasty implant and graft; Z95.1 Presence of aortocoronary bypass graft; Z87.891 Personal history of nicotine dependence; Z88.5 Allergy status to narcotic agent
CPT/HCPCS: 36415; 71010; 80048; 83880; 84484; 85025; 87040; 93970; 99284; A9270

== ENCOUNTER 2017-06-25 21:51 | Emergency (ER) | payer MEDICAID ==
--- NOTE | 2017-06-25 21:54 | EDM.PDOC ---
ED HPI GENERAL MEDICAL PROBLEM - General Stated Complaint: BEE STING Time Seen by Provider: 06/25/17 21:54 Source of Information: Reports: Patient History Limitations: Reports: No Limitations - History of Present Illness INITIAL COMMENTS - FREE TEXT/NARRATIVE: 57 yo M who presented to the ER following a Bee sting to the right upper extremity and back. C/o severe pain at the site of the sting. [place] very dizzy after the sting and called the EMS. En route to the hospital, patient was given Epipen and benadryl and he was already feeling better on arrival to the ER. Rates the pain on the right Forearm as 6/10 and requested which normally works for his pain. No SOB, Chest pain or hypotension Onset: Today Worsens with: Reports: None Associated Symptoms: Reports: No Other Symptoms all over body Pain Score (Numeric/FACES): 9 - Related Data Allergies Allergy/AdvReac Type Severity Reaction Status Date / Time ketorolac [From Toradol] Allergy Vomiting Verified 06/25/17 21:58 Home Meds: Home Meds Diazepam [Valium] 5 mg PO BID 03/24/17 [History] Metoprolol Tartrate 50 mg PO DAILY 03/24/17 [History] Nitroglycerin [Nitrostat] 0.4 mg SL ASDIRECTED PRN 03/24/17 [History] Potassium Chloride 10 meq PO DAILY 03/24/17 [History] Simvastatin [Zocor] 40 mg PO BEDTIME 03/24/17 [History] traMADol [Ultram] 50 mg PO TID 03/24/17 [History] Cephalexin [IJD: Cephalexin] 500 mg PO Q6H #30 cap 03/28/17 [Rx] Clopidogrel [Plavix] 75 mg PO DAILY 03/28/17 [History] Aspirin 1 tab PO DAILY 06/17/17 [History] Budesonide/Formoterol Fumarate [Symbicort 160-4.5 Mcg Inhaler] 1 puff INH DAILY PRN 06/25/17 [History] Famotidine [Pepcid] 20 mg PO BID #10 tablet 06/25/17 [Rx] diphenhydrAMINE [Benadryl] 25 mg PO Q6H PRN #30 bottle 06/25/17 [Rx] predniSONE 40 mg PO WITHBREAKFAST #10 tablet 06/25/17 [Rx] traMADol HCl [Ultram] 50 mg PO TID PRN #20 tablet 06/25/17 [Rx] Past Medical History HEENT History: Reports: Cataract, Impaired Vision Other HEENT History: wears glasses Cardiovascular History: Reports: Angina, Bypass, CAD, Heart Failure, High Cholesterol, Hypertension, [place], PTCA, Stents Respiratory History: Reports: COPD, Sleep Apnea Other Respiratory History: supplemental oxygen at home Musculoskeletal History: Reports: Other (See Below) - Infectious Disease History Infectious Disease History: Reports: Chicken Pox, Measles - Past Surgical History Cardiovascular Surgical History: Reports: Coronary Artery Bypass, Coronary Artery Stent Social & Family History - Tobacco Use Smoking Status *Q: Former Smoker Years of Tobacco use: 25 Packs/Tins Daily: 1 Used Tobacco, but Quit: Yes Month Tobacco Last Used: [email or web address] Second Hand Smoke Exposure: Yes - Caffeine Use Caffeine Use: Reports: Coffee - Alcohol Use Days Per Week of Alcohol Use: 0 - Recreational Drug Use Recreational Drug Use: No ED ROS GENERAL - Review of Systems Review Of Systems: See Below HEENT: Reports: No Symptoms Respiratory: Reports: No Symptoms Cardiovascular: Reports: No Symptoms Endocrine: Reports: No Symptoms GI/Abdominal: Reports: No Symptoms Musculoskeletal: Reports: No Symptoms Skin: Reports: No Symptoms Neurological: Reports: No Symptoms Psychiatric: Reports: No Symptoms Hematologic/Lymphatic: Reports: No Symptoms Immunologic: Reports: No Symptoms ED EXAM, GENERAL - Physical Exam Exam: See Below Exam Limited By: No Limitations General Appearance: Alert, WD/WN, No Apparent Distress Eye Exam: Bilateral Eye: PERRL Ears: Normal External Exam, Normal Canal, Hearing Grossly Normal, Normal TMs Nose: Normal Inspection, Normal Mucosa, No Blood Throat/Mouth: Normal Inspection, Normal Lips, No Airway Compromise Head: Atraumatic, Normocephalic Neck: Normal Inspection, Supple, Non-Tender, Full Range of Motion Respiratory/Chest: No Respiratory Distress, Lungs Clear Cardiovascular: Normal Peripheral Pulses, Regular Rate, Rhythm, No Edema, No Murmur GI/Abdominal: Normal Bowel Sounds, Soft, Non-Tender, No Organomegaly, No Distention Back Exam: Normal Inspection, Full Range of Motion Extremities: Normal Inspection, Normal Range of Motion, Non-Tender Neurological: Alert, Oriented, CN II-XII Intact, Normal Cognition, No Motor/ Sensory Deficits Psychiatric: Normal Affect, Normal Mood Skin Exam: Warm Lymphatic: No Adenopathy Course - Vital Signs Last Recorded V/S: Last Vital Signs Temp 37.1 C 06/25/17 21:55 Pulse 103 H 06/25/17 21:55 Resp 15 06/25/17 21:55 BP 122/77 06/25/17 21:55 Pulse Ox 98 06/25/17 21:55 - Orders/Labs/Meds Meds: Medications Discontinued Medications Generic Name Dose Route Start Last Admin Trade Name Freq PRN Reason Stop Dose Admin Diphenhydramine HCl 50 mg 06/25/17 22:10 06/25/17 22:19 Benadryl PO 06/25/17 22:11 50 mg ONETIME ONE Administration Famotidine 20 mg 06/25/17 22:10 06/25/17 22:20 Pepcid PO 06/25/17 22:11 20 mg ONETIME ONE Administration Prednisone 60 mg 06/25/17 22:09 06/25/17 22:20 Prednisone PO 06/25/17 22:10 60 mg ONETIME ONE Administration Tramadol HCl 50 mg 06/25/17 22:11 06/25/17 22:21 Ultram PO 06/25/17 22:12 50 mg ONETIME ONE Administration Departure - Departure Time of Disposition: 22:59 Disposition: Home, Self-Care 01 Condition: Good Clinical Impression: Bee sting allergy - Discharge Information Prescriptions: Famotidine [Pepcid] 20 mg PO BID #10 tablet diphenhydrAMINE [Benadryl] 25 mg PO Q6H PRN #30 bottle PRN Reason: allergic reaction predniSONE 40 mg PO WITHBREAKFAST #10 tablet traMADol HCl [Ultram] 50 mg PO TID PRN #20 tablet PRN Reason: Pain Instructions: Insect Bite, Bee, Wasp, or Hornet Sting Referrals: PCP,Unknown [Primary Care Provider] - Forms: ED Department Discharge Additional Instructions: Follow with PCP Tramadol for pain Return if symptoms worsen Call your Physician or Return to Emergency Department if: * Your condition worsens in any way. * You develop fever greater than 100.4. * You have vomitting that does not stop with medications. * You have pain that is not controlled with medications.
[2017-06-25] MEDS ORDERED: predniSONE 20 MG Tab PO ONE (22:09)
[2017-06-25] MEDS ORDERED: Famotidine 20 MG Tab PO ONE (22:10)
[2017-06-25] MEDS ORDERED: diphenhydrAMINE 50 MG Cap PO ONE (22:10)
[2017-06-25] MEDS ORDERED: traMADol 50 MG Tab PO ONE ×2 (22:11→22:32)
[2017-06-25 22:58] VITALS: BP 116/68
== END 2017-06-25 22:50 | disposition home or self-care (01) ==
LOC: FB.ED 21:51
DX: T63.441A Toxic effect of venom of bees, accidental (unintentional), initial encounter (principal); R42 Dizziness and giddiness
CPT/HCPCS: 99282; A9270

== ENCOUNTER 2017-07-26 21:58 | Emergency (ER) | payer MEDICAID ==
[2017-07-26] MEDS ORDERED: Morphine 4 MG/ML Syringe IM ONE (22:40)
[2017-07-27] MEDS ORDERED: Sodium Chloride 0.9% 500 ML IV ONE (00:08)
[2017-07-27] MEDS ORDERED: LORazepam 2 MG/ML MDV IVPUSH ONE (00:10)
[2017-07-27] MEDS ORDERED: traMADol 50 MG Tab PO ONE (00:29)
[2017-07-27 04:26] VITALS: BP 99/64
--- NOTE | 2017-07-28 13:36 | CR ---
INDICATION: Chest pain. CHEST: PA and lateral views of the chest were obtained 07/26/2017 and compared with 06/17/2017 and 03/24/2017, again revealing the heart to be enlarged with post median sternotomy change. Findings remain compatible with COPD. The heart is enlarged. The aorta is somewhat tortuous with calcification suggested in the arch. A definite active infiltrate or effusion was not identified. Mild degenerative changes are noted in the lower thoracic spine. IMPRESSION: 1. No definite acute process. 2. COPD. 3. Post-surgical heart. 4. Mild DJD spine. 5. ASHD with cardiomegaly. MTDD
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
== END 2017-07-27 02:30 | disposition home or self-care (01) ==
LOC: FB.ED 21:58
DX: R07.89 Other chest pain (principal); E78.5 Hyperlipidemia, unspecified; J45.909 Unspecified asthma, uncomplicated; I25.2 Old myocardial infarction; E66.01 Morbid (severe) obesity due to excess calories; I10 Essential (primary) hypertension; Z95.1 Presence of aortocoronary bypass graft; Z95.5 Presence of coronary angioplasty implant and graft; Z87.891 Personal history of nicotine dependence; Z79.82 Long term (current) use of aspirin; Z68.38 Body mass index [BMI] 38.0-38.9, adult; Z79.899 Other long term (current) drug therapy
CPT/HCPCS: 36415; 71020; 80053; 80305; 84484; 85025; 85379; 93005; 96372; 96374; 99284; A9270; G0480; J2060; J2270; J7040

== ENCOUNTER 2017-08-28 20:27 | Emergency (ER) | payer MEDICAID ==
[2017-08-28] MEDS ORDERED: Morphine 10 MG/ML Syringe IM ONE (21:24)
[2017-08-28 21:52] VITALS: BP 109/58
--- NOTE | 2017-08-29 02:23 | ER ---
DATE SEEN: 08/28/2017 CHIEF COMPLAINT: Pain in foot. HISTORY OF PRESENT ILLNESS: This is a 57-year-old male, who dropped a door on his right foot and some on the left, complains of pain, bruising on the top of the foot. PAST MEDICAL HISTORY: Anxiety disorder, CHF, and COPD. MEDICATIONS: Reviewed. PHYSICAL EXAMINATION: GENERAL: Pleasant. VITAL SIGNS: Blood pressure is normal. Pulse is 103. EXTREMITIES: Boot-cy-pjjqmpmg edema bilaterally. There is a bruise on the top dorsum of the right foot, exquisitely tender to palpation. DIAGNOSTIC DATA: X-ray of the right and left foot negative for any fracture. IMPRESSION: Foot pain bilateral. PLAN: Morphine 10 mg IM. Ice, rest, and elevation. I declined to give him any narcotics. TIME SEEN: 2100 hours. /[id number] YAIR/SHAILESH
--- NOTE | 2017-08-29 12:36 | CR ---
INDICATION: Door fell on him, pain distal metatarsals. Dog burst through door. Door fell on patient's feet, injuring both feet. LEFT FOOT: Three views of the left foot were obtained, revealing moderately severe degenerative changes at the first metatarsophalangeal joint. There is some granular metallic appearing material either on or in the soft tissues, plantar to the lateral aspect of the first metatarsophalangeal joint - proximal metaphysis of the proximal phalanx of the great toe. This could be due to a previous injury and should be correlated clinically. Relatively minimal degenerative changes are noted at the interphalangeal joint of the great toe and the DIP joints of the second through fourth toes. A moderate sized plantar calcaneal spur is noted. Degenerative changes are noted at the talonavicular joint of mild degree. There is some soft tissue swelling overlying the dorsum of the foot at the level of the mid to distal metatarsals. A definite fracture or dislocation was not identified. IMPRESSION: 1. No acute fracture or dislocation. 2. Soft tissue swelling dorsum of the foot at the level of the mid to distal metatarsals. 3. Osteoarthritis. 4. Granular metallic foreign bodies suggested plantar to the base of the great toe of questionable significance. 5. Moderate sized plantar calcaneal spur. MTDD
--- NOTE | 2017-08-29 12:38 | CR ---
INDICATION: Door fell on him, pain distal metatarsals. Dog burst through door. Door fell on patient's feet, injuring both feet. RIGHT FOOT: Three views of the right foot were obtained and revealed minimal degenerative changes at the interphalangeal joint of the great toe and at the second and third toes, DIP joints. Moderate sized plantar calcaneal spur is noted with a tiny posterior calcaneal spur. There are some calcifications distal to the plantar calcaneal spur, which may represent dystrophic soft tissue calcifications from previous injury to the soft tissue in that area. Minimal degenerative changes are noted at the talonavicular joint. A fracture or dislocation was not identified. Soft tissue swelling is noted overlying the dorsum of the foot at the level of the mid to distal metatarsal shafts. IMPRESSION: 1. No acute fracture or dislocation. 2. Soft tissue swelling dorsum of the foot at the level of the mid to distal shafts of the metatarsals. 3. Minimal to mild osteoarthritis. 4. Plantar calcaneal spur with very tiny posterior calcaneal spur. [facility]ITALCarmen
== END 2017-08-28 21:52 | disposition home or self-care (01) ==
LOC: FB.ED 20:27
DX: M79.671 Pain in right foot (principal); M79.672 Pain in left foot
CPT/HCPCS: 73630; 96372; 99283; J2270

== ENCOUNTER 2017-09-29 12:13 | Emergency (ER) | payer MEDICAID ==
--- NOTE | 2017-09-29 14:32 | EDM.PDOC ---
ED HPI GENERAL MEDICAL PROBLEM - General Chief Complaint: Lower Extremity Injury/Pain Stated Complaint: SOB Time Seen by Provider: 09/29/17 14:32 Source of Information: Reports: Patient History Limitations: Reports: No Limitations - History of Present Illness INITIAL COMMENTS - FREE TEXT/NARRATIVE: c/o b/l knee pain, L>R pt with h/o CABG x 3, stents x 10, COPD, O2 dependent he plans to walk 50 miles on 11/02 "for the kids", insists of getting treatment and meds for his knee pain walked from [place] to [place] in May says this is his last time he has moderately severe chondromalacia patellae and I told him that it was very unlikely he could walk that far, that is is not fixable in that period of time he wanted a few Tyl #4 in reserve using a cane was a medic in the Left Knee Pain Score (Numeric/FACES): 8 - Related Data Allergies Allergy/AdvReac Type Severity Reaction Status Date / Time ketorolac [From Toradol] Allergy Vomiting Verified 08/28/17 20:52 Home Meds: Home Meds Metoprolol Tartrate 50 mg PO DAILY 03/24/17 [History] Nitroglycerin [Nitrostat] 0.4 mg SL ASDIRECTED PRN 03/24/17 [History] Clopidogrel [Plavix] 75 mg PO DAILY 03/28/17 [History] Aspirin 1 tab PO DAILY 06/17/17 [History] Budesonide/Formoterol Fumarate [Symbicort 160-4.5 Mcg Inhaler] 1 puff INH DAILY PRN 06/25/17 [History] Famotidine [Pepcid] 20 mg PO BID #10 tablet 06/25/17 [Rx] predniSONE 20 mg PO WITHBREAKFAST 07/27/17 [History] Acetaminophen with Codeine [Tylenol with Codeine #4 Tablet] 1 each PO Q6H PRN # 6 tablet 09/29/17 [Rx] Past Medical History HEENT History: Reports: Cataract, Impaired Vision Other HEENT History: wears glasses Cardiovascular History: Reports: Angina, Bypass, CAD, Heart Failure, High Cholesterol, Hypertension, [place], PTCA, Stents Respiratory History: Reports: COPD, Sleep Apnea Other Respiratory History: supplemental oxygen at home Musculoskeletal History: Reports: Other (See Below) Psychiatric History: Reports: Anxiety, Panic Attack, PTSD Endocrine/Metabolic History: Reports: Obesity/BMI 30+ - Infectious Disease History Infectious Disease History: Reports: Chicken Pox, Measles, Mumps - Past Surgical History Cardiovascular Surgical History: Reports: Coronary Artery Bypass, Coronary Artery Stent Other Cardiovascular Surgeries/Procedures: 10 stents with 3 vessel CABG GI Surgical History: Reports: Appendectomy, Other (See Below) Other GI Surgeries/Procedures: exploratory lap Social & Family History - Family History Family Medical History: Noncontributory - Tobacco Use Smoking Status *Q: Former Smoker Years of Tobacco use: 40 Packs/Tins Daily: 1 Used Tobacco, but Quit: Yes Month Tobacco Last Used: August Second Hand Smoke Exposure: Yes - Caffeine Use Caffeine Use: Reports: Coffee - Alcohol Use Days Per Week of Alcohol Use: 1 Number of Drinks Per Day: 3 Total Drinks Per Week: 3 - Recreational Drug Use Recreational Drug Use: No Review of Systems - Review of Systems Review Of Systems: See Below Constitutional: Reports: No Symptoms Eyes: Reports: No Symptoms Ears: Reports: No Symptoms Nose: Reports: No Symptoms Mouth/Throat: Reports: No Symptoms Respiratory: Reports: No Symptoms Cardiovascular: Reports: No Symptoms GI/Abdominal: Reports: No Symptoms Genitourinary: Reports: No Symptoms Musculoskeletal: Reports: Joint Pain Skin: Reports: No Symptoms Neurological: Reports: No Symptoms Psychiatric: Reports: No Symptoms ED EXAM, GENERAL - Physical Exam Exam: See Below Exam Limited By: No Limitations General Appearance: Alert, WD/WN, No Apparent Distress Respiratory/Chest: No Respiratory Distress Cardiovascular: Regular Rate, Rhythm Extremities: Other (SLR 45 degree on R and 35 degree on L, limited by pain, mild tender at patella medial facet on R, 2+ tender on L, able to lift RLE off table with patella compression, not able to do so on the left, XR with mild loss of medial compartment with mild subchondral sclerosis, MCL/LCL NT, no effusion, not ballottable) Course - Vital Signs Last Recorded V/S: Last Vital Signs Temp 36.2 C 09/29/17 13:00 Pulse 92 09/29/17 13:00 Resp 20 09/29/17 13:00 BP 121/84 09/29/17 13:00 Pulse Ox 99 09/29/17 13:00 - Orders/Labs/Meds Orders: Active Orders 24 hr Category Date Time Status Knee 3V Lt [CR] Stat Exams 09/29/17 13:08 Taken Departure - Departure Time of Disposition: 14:36 Disposition: Home, Self-Care 01 Condition: Good Clinical Impression: Chondromalacia of both patellae - Discharge Information Prescriptions: Acetaminophen with Codeine [Tylenol with Codeine #4 Tablet] 1 each PO Q6H PRN # 6 tablet PRN Reason: Pain Referrals: Bishop Quach MD [Primary Care Provider] - Forms: ED Department Discharge Additional Instructions: Spend 2 minutes 4 times a day stretching your hamstring on each side. Do quadricep strengthening, 30 leg curls from 45 degrees to full extension 30 times a day with 5 pound weight for 1 week, then 10 pounds for 1 week, then 15 pounds. May use treadmill. Avoid inclines and steps which will aggravate your knees. For pain and inflammation, take acetaminophen 325 mg 2 tabs 4 times a day for the next month. For pain, as needed, take Tylenol #4 1 tab every 6 hour. It typically takes 2-3 months for an inflamed patella cartilage to heal. See your doctor in 1 week. - My Orders Last 24 Hours: My Active Orders 09/29/17 13:08 Knee 3V Lt [CR] Stat - Assessment/Plan Last 24 Hours: My Active Orders 09/29/17 13:08 Knee 3V Lt [CR] Stat
--- NOTE | 2017-09-29 14:55 | CR ---
INDICATION: Complains of pain after walking long distances. Pain around patella. LEFT KNEE: Three views of the left knee were obtained, including the patellar sunrise view, and revealed minimal osteoarthritic changes at the patellofemoral joint and at the intercondylar spines. Joint spaces appear to be fairly well maintained. Slight prominence at the suprapatellar bursa raises question of a minimal knee joint effusion. Calcification is noted in calf arteries. IMPRESSION: 1. Minimal osteoarthritis with suggestion of possible minimal knee joint effusion. 2. ASD. MTDD
[2017-09-29] MEDS ORDERED: Ketorolac 60 MG/2 ML SDV IM ONE (15:01)
[2017-09-29] MEDS ORDERED: Morphine 4 MG/ML Syringe IM ONE (15:04)
[2017-09-29 15:36] VITALS: BP 144/85
== END 2017-09-29 15:19 | disposition home or self-care (01) ==
LOC: FB.ED 12:13
DX: M22.42 Chondromalacia patellae, left knee (principal); M22.41 Chondromalacia patellae, right knee; I11.0 Hypertensive heart disease with heart failure; I50.9 Heart failure, unspecified; I25.10 Atherosclerotic heart disease of native coronary artery without angina pectoris; E78.00 Pure hypercholesterolemia, unspecified; J44.9 Chronic obstructive pulmonary disease, unspecified; F32.9 Major depressive disorder, single episode, unspecified; Z99.81 Dependence on supplemental oxygen; Z95.1 Presence of aortocoronary bypass graft; Z95.5 Presence of coronary angioplasty implant and graft; Z87.891 Personal history of nicotine dependence; Z79.02 Long term (current) use of antithrombotics/antiplatelets; Z79.82 Long term (current) use of aspirin; Z79.899 Other long term (current) drug therapy; Z88.6 Allergy status to analgesic agent
CPT/HCPCS: 73562; 96372; 96374; 99283; J2270

== ENCOUNTER 2017-10-06 01:29 | Emergency (ER) | payer MEDICAID ==
[2017-10-06] MEDS ORDERED: Morphine 10 MG/ML Syringe IM ONE (01:44)
--- NOTE | 2017-10-06 02:59 | ER ---
DATE SEEN: 10/06/2017 CHIEF COMPLAINT: Chest pain. HISTORY OF PRESENT ILLNESS: This is a 57-year-old male who presented to the ER with nonspecific chest pain, poorly localized, but states it goes to the neck. It has been going on for an unspecified period of time. He does have a history of CHF, COPD, and previously atherosclerotic heart disease with a recent stress test in [place] that was negative. He also has a history of alcohol abuse and has been addicted to pain pills. Previously used to see me for tramadol, but he now sees Dr. Quach. Angela, he is asking for morphine to control his chest pain. REVIEW OF SYSTEMS: He complains of no nausea or vomiting. He admits to have been drinking tonight. MEDICATIONS: Please see the nurse's notes. ALLERGIES: Please see the nurse's notes. PHYSICAL EXAMINATION: VITAL SIGNS: He has normal vital signs. EARS, NOSE, AND THROAT: Negative. CHEST: Clear. CARDIOVASCULAR: Normal. EXTREMITIES: Marked peripheral edema, nonpitting. MENTAL STATUS: Alert. LABORATORY DATA: EKG showed normal sinus rhythm. IMPRESSION: 1. Angina pectoris. 2. Alcohol abuse. 3. Chronic pain syndrome. PLAN: I gave him 10 mg of morphine IM, his symptoms improved dramatically. I did a troponin that was unremarkable. I sent him home to follow up in the office. TIME SEEN: 0200 hours. /[id number] YAIR/SHAILESH
[2017-10-06 03:33] VITALS: BP 136/73
== END 2017-10-06 03:30 | disposition home or self-care (01) ==
LOC: FB.ED 01:29
DX: I25.119 Atherosclerotic heart disease of native coronary artery with unspecified angina pectoris (principal); I50.9 Heart failure, unspecified; G89.4 Chronic pain syndrome
CPT/HCPCS: 36415; 84484; 93005; 96372; 99285; J2270

== ENCOUNTER 2017-10-22 17:09 | Emergency (ER) | payer MEDICAID ==
[2017-10-22] MEDS ORDERED: Morphine 2 MG/ML Syringe IM ONE ×2 (17:27→18:31)
[2017-10-22] MEDS ORDERED: Ondansetron 8 MG Tab.DIS PO ONE (17:43)
--- NOTE | 2017-10-22 17:55 | EDM.PDOC ---
ED HPI GENERAL MEDICAL PROBLEM - General Chief Complaint: Lower Extremity Injury/Pain Stated Complaint: RIGHT KNEE Time Seen by Provider: 10/22/17 17:27 Source of Information: Reports: Patient, Family History Limitations: Reports: Intoxication - History of Present Illness INITIAL COMMENTS - FREE TEXT/NARRATIVE: 57 y.o.w.m with a h/o COPD, om home O2, came with his to the ed after jumped in a shallow swimming pool, knee first and hit his r knee. Pt was drinking before the accident, unable to ambulate. No N/V/D. Pt is intoxicated. No other acute medical issues. BP 145/106 Pulse 113 Pulse ox 99% on 3 liters O2 by NC. RR 24 Temp 36.6 Onset: Today Onset Date: 10/22/17 Onset Time: 17:00 Duration: Minutes: Location: Reports: Lower Extremity, Right Quality: Reports: Ache, Dull, Pressure, Stabbing, Throbbing Severity: Moderate Improves with: Reports: Rest Worsens with: Reports: Movement Context: Reports: Other (Pt jumped in a shallow swimming pool, knee first and hit his r knee, unable to ambulte) Associated Symptoms: Reports: Nausea/Vomiting, Weakness - Related Data Allergies Allergy/AdvReac Type Severity Reaction Status Date / Time ketorolac [From Toradol] Allergy Vomiting Verified 10/22/17 17:26 Home Meds: Home Meds Metoprolol Tartrate 150 mg PO DAILY 03/24/17 [History] Nitroglycerin [Nitrostat] 0.4 mg SL ASDIRECTED PRN 03/24/17 [History] Clopidogrel [Plavix] 75 mg PO DAILY 03/28/17 [History] Aspirin 1 tab PO DAILY 06/17/17 [History] Budesonide/Formoterol Fumarate [Symbicort 160-4.5 Mcg Inhaler] 1 puff INH DAILY PRN 06/25/17 [History] predniSONE 20 mg PO WITHBREAKFAST 07/27/17 [History] Past Medical History HEENT History: Reports: Cataract, Impaired Vision Other HEENT History: wears glasses Cardiovascular History: Reports: Angina, Bypass, CAD, Heart Failure, High Cholesterol, Hypertension, [place], PTCA, Stents Respiratory History: Reports: COPD, Sleep Apnea Other Respiratory History: supplemental oxygen at home Musculoskeletal History: Reports: Other (See Below) Psychiatric History: Reports: Anxiety, Panic Attack, PTSD Endocrine/Metabolic History: Reports: Obesity/BMI 30+ - Infectious Disease History Infectious Disease History: Reports: Chicken Pox, Measles, Mumps - Past Surgical History Cardiovascular Surgical History: Reports: Coronary Artery Bypass, Coronary Artery Stent Other Cardiovascular Surgeries/Procedures: 10 stents with 3 vessel CABG GI Surgical History: Reports: Appendectomy, Other (See Below) Other GI Surgeries/Procedures: exploratory lap Social & Family History - Family History Family Medical History: Noncontributory - Tobacco Use Smoking Status *Q: Former Smoker Years of Tobacco use: 30 Packs/Tins Daily: 1 Used Tobacco, but Quit: Yes Month Tobacco Last Used: 6 years ago Second Hand Smoke Exposure: No - Caffeine Use Caffeine Use: Reports: Coffee, Soda - Alcohol Use Days Per Week of Alcohol Use: 7 Number of Drinks Per Day: 3 Total Drinks Per Week: 21 - Recreational Drug Use Recreational Drug Use: No Review of Systems - Review of Systems Review Of Systems: Unable To Obtain (intoxicated) ED EXAM, GENERAL - Physical Exam Exam: See Below Exam Limited By: Intoxication General Appearance: Alert, Mild Distress, Obese Eye Exam: Bilateral Eye: EOMI, Normal Inspection Ears: Normal External Exam Ear Exam: Bilateral Ear: Auricle Normal Nose: Normal Inspection, Normal Mucosa Throat/Mouth: Normal Lips, No Airway Compromise, Other (poor dentition) Head: Atraumatic, Normocephalic Neck: Normal Inspection, Supple, Non-Tender, Full Range of Motion Respiratory/Chest: No Respiratory Distress (on Home O2 3 liters by NC), Lungs Clear, Normal Breath Sounds Cardiovascular: Normal Peripheral Pulses, Regular Rate, Rhythm, No Edema, No Gallop, No JVD, No Murmur Peripheral Pulses: 1+: Radial (R) GI/Abdominal: Normal Bowel Sounds, Soft, Non-Tender, No Organomegaly, No Abnormal Bruit, No Mass, Pelvis Stable, Distended (abdominal obesity) (Male) Exam: Deferred Rectal (Males) Exam: Deferred Back Exam: Normal Inspection, Full Range of Motion Extremities: Limited Range of Motion (of right knee due to pain.) Neurological: Alert, CN II-XII Intact, Slow to Respond (intoxicated) Psychiatric: Depressed Mood Skin Exam: Rash (abrasion right anterior knee. ) Lymphatic: No Adenopathy Course - Vital Signs Text/Narrative:: 57 y.o.w.m with a h/o COPD, om home O2, came with his to the ed after jumped in a shallow swimming pool, knee first and hit his r knee. Pt was drinking before the accident, unable to ambulate. No N/V/D. Pt is intoxicated. No other acute medical issues. BP 145/106 Pulse 113 Pulse ox 99% on 3 liters O2 by NC. RR 24 Temp 36.6 PE: Intoxicated WM with an abrasion R knee Labs: ETOH 0.25 Imaging: right knee: NAD Impression: ETOH intxication, R knee sprain with ant knee abrasion. Tx: Morphin I.M, ICE, Neosporine TOÑO wrap. Folic acid, MVT and Thiamin. JOHNNA pierre TD(2015) Reexam: Improved. Pt was able to ambulate. Pt's will observe him for next 24 hours Plan: D/C with instructions Last Recorded V/S: Last Vital Signs Temp 36.8 C 10/22/17 17:27 Pulse 110 H 10/22/17 17:27 Resp 24 H 10/22/17 17:27 BP 145/106 H 10/22/17 17:27 Pulse Ox 99 10/22/17 17:27 - Orders/Labs/Meds Orders: Active Orders 24 hr Category Date Time Status Cooling Warming Measures [RC] ASDIRECTED Care 10/22/17 17:21 Active Knee 3V Rt [CR] Stat Exams 10/22/17 17:21 Taken Ice Bag [Ice Therapy] [OM.PC] Routine Oth 10/22/17 17:21 Ordered Labs: Laboratory Tests 10/22/17 10/22/17 10/22/17 Range/Units 18:00 18:00 18:00 WBC 8.6 (4.5-12.0) X10-3/uL RBC 4.89 (4.30-5.75) x10(6)uL Hgb 14.9 (11.5-15.5) g/dL Hct 44.8 (30.0-51.3) % MCV 91.5 (80-96) fL MCH 30.4 (27.7-33.6) pg MCHC 33.2 (32.2-35.4) g/dL RDW 13.6 (11.5-15.5) % Plt Count 243 (125-369) X10(3)uL MPV 9.0 (7.4-10.4) fL Neut % (Auto) 40.1 L (46-82) % Lymph % (Auto) 51.1 H (13-37) % [place] % (Auto) 7.4 (4-12) % Eos % (Auto) 1 (1.0-5.0) % Baso % (Auto) 1 (0-2) % Neut # (Auto) 3.4 (1.6-8.3) # Lymph # (Auto) 4.5 (0.6-5.0) # [place] # (Auto) 0.6 (0.0-1.3) # Eos # (Auto) 0.1 (0.0-0.8) # Baso # (Auto) 0.0 (0.0-0.2) # Sodium 140 (135-145) mmol/L Potassium 3.5 (3.5-5.3) mmol/L Chloride 106 (100-110) mmol/L Carbon Dioxide 23 (21-32) mmol/L BUN 14 (7-18) mg/dL Creatinine 0.8 (0.70-1.30) mg/dL Est Cr Clr Drug Dosing 96.19 mL/min Estimated GFR (MDRD) > 60 (>60) BUN/Creatinine Ratio 17.5 (9-20) Glucose 111 (80-116) mg/dL Calcium 8.2 L (8.6-10.2) mg/dL Ethyl Alcohol 0.25 H* (<0.03) % Meds: Medications Discontinued Medications Generic Name Dose Route Start Last Admin Trade Name Mora PRN Reason Stop Dose Admin Folic Acid 1 mg 10/22/17 18:35 10/22/17 18:45 Folic Acid PO 10/22/17 18:36 1 mg ONETIME ONE Administration Morphine Sulfate 2 mg 10/22/17 17:27 10/22/17 17:33 Morphine IM 10/22/17 17:28 2 mg ONETIME ONE Administration Morphine Sulfate 1 mg 10/22/17 18:31 10/22/17 18:47 Morphine IM 10/22/17 18:32 1 mg ONETIME ONE Administration Multivitamins/Minerals/Vitamin C 1 tab 10/22/17 18:35 10/22/17 18:45 Tab-A-Viviana PO 10/22/17 18:36 1 tab BEDTIME STA Administration Ondansetron HCl 8 mg 10/22/17 17:43 10/22/17 17:48 Zofran Odt PO 10/22/17 17:44 8 mg ONETIME ONE Administration Thiamine HCl 100 mg 10/22/17 18:35 10/22/17 18:45 Vitamin B-1 PO 10/22/17 18:36 100 mg ONETIME ONE Administration Departure - Departure Time of Disposition: 18:37 Disposition: Home, Self-Care 01 Condition: Good Clinical Impression: ETOH abuse, Abrasion Right knee sprain Qualifiers: Encounter type: initial encounter Involved ligament of knee: unspecified ligament Qualified Code(s): S83.91XA - Sprain of unspecified site of right knee , initial encounter - Discharge Information Instructions: Alcohol Intoxication, [id number], Abrasion, [id number], Knee Sprain Referrals: Bishop Quach MD [Primary Care Provider] - Forms: ED Department Discharge Additional Instructions: Please apply Neosporine ointment twice daily to wound, please apply ice, rest and elevation, please f/u with your PMD/VA, come back if your symptoms worsen acutely. - My Orders Last 24 Hours: My Active Orders 10/22/17 17:21 Cooling Warming Measures [RC] ASDIRECTED Knee 3V Rt [CR] Stat Ice Bag [Ice Therapy] [OM.PC] Routine - Assessment/Plan Last 24 Hours: My Active Orders 10/22/17 17:21 Cooling Warming Measures [RC] ASDIRECTED Knee 3V Rt [CR] Stat Ice Bag [Ice Therapy] [OM.PC] Routine
[2017-10-22] MEDS ORDERED: Multivitamin Tab PO STA (18:35)
[2017-10-22] MEDS ORDERED: Folic Acid 1 MG Tab PO ONE (18:35)
[2017-10-22] MEDS ORDERED: Thiamine 100 MG Tab PO ONE (18:35)
[2017-10-22 19:45] VITALS: BP 126/73
--- NOTE | 2017-10-23 13:38 | CR ---
INDICATION: Trauma. RIGHT KNEE: Three images of the right knee in frontal and lateral projections were obtained. No comparisons were available. The date of the examination is 10/22/2017. A fracture, dislocation, or other definite bone or joint abnormality was not identified of an acute nature. There is noted a spur off the cranial anterior aspect of the patella, however. MTDD
== END 2017-10-22 19:14 | disposition home or self-care (01) ==
LOC: FB.ED 17:09
DX: S83.91XA Sprain of unspecified site of right knee, initial encounter (principal); S80.211A Abrasion, right knee, initial encounter; F10.129 Alcohol abuse with intoxication, unspecified; Y90.1 Blood alcohol level of 20-39 mg/100 ml; I11.0 Hypertensive heart disease with heart failure; I50.9 Heart failure, unspecified; I25.10 Atherosclerotic heart disease of native coronary artery without angina pectoris; E78.00 Pure hypercholesterolemia, unspecified; J44.9 Chronic obstructive pulmonary disease, unspecified; Z87.891 Personal history of nicotine dependence; Z79.02 Long term (current) use of antithrombotics/antiplatelets; Z79.82 Long term (current) use of aspirin; Z79.899 Other long term (current) drug therapy; Z88.6 Allergy status to analgesic agent; W16.512A Jumping or diving into swimming pool striking water surface causing other injury, initial encounter; Y92.34 Swimming pool (public) as the place of occurrence of the external cause
CPT/HCPCS: 36415; 73562; 80048; 85025; 96372; 99284; A9270; G0480; J2270

== ENCOUNTER 2018-01-09 10:47 | Emergency (ER) | payer MEDICAID ==
[2018-01-09] MEDS ORDERED: Albuterol/Ipratropium 3.0-0.5 MG/3 ML Neb Soln NEB ONE (11:18)
[2018-01-09] MEDS ORDERED: methylPREDNISolone Sodium Succinate 125 MG/2 ML SDV IM ONE (11:19)
--- NOTE | 2018-01-09 12:06 | EDM.PDOC ---
ED HPI GENERAL MEDICAL PROBLEM - General Chief Complaint: Headache Stated Complaint: HEAD ACHE Time Seen by Provider: 01/09/18 10:55 Source of Information: Reports: Patient, Family History Limitations: Reports: No Limitations - History of Present Illness INITIAL COMMENTS - FREE TEXT/NARRATIVE: 57 y.o.w.m with a h/o COPD, om home O2, chronic intermittand headache, came to the ed with his due to SOBand headache. Pt was not using his O2 for a few hours while driving from [place] to [place]. Pt is not compliant meds and takes them "sometimes" No other acute medical issues. BP 142/72 pulse 94 Temp 36.6 pulse ox 94 on 4 liters O2 by [place]. Onset Date: 12/18/17 Onset Time: 09:00 Duration: Week(s):, Intermittent Location: Reports: Chest Quality: Reports: Same as Previous Episode (SOB) Severity: Moderate Improves with: Reports: Medication Worsens with: Reports: Other (noncompliance) Context: Reports: Exercise Associated Symptoms: Reports: No Other Symptoms Headache Pain Score (Numeric/FACES): 5 - Related Data Allergies Allergy/AdvReac Type Severity Reaction Status Date / Time ketorolac [From Toradol] Allergy Vomiting Verified 01/09/18 11:12 Home Meds: Home Meds Metoprolol Tartrate 150 mg PO DAILY 03/24/17 [History] Nitroglycerin [Nitrostat] 0.4 mg SL ASDIRECTED PRN 03/24/17 [History] Clopidogrel [Plavix] 75 mg PO DAILY 03/28/17 [History] Aspirin 1 tab PO DAILY 06/17/17 [History] Budesonide/Formoterol Fumarate [Symbicort 160-4.5 Mcg Inhaler] 1 puff INH DAILY PRN 06/25/17 [History] predniSONE 20 mg PO WITHBREAKFAST 07/27/17 [History] traMADol [Ultram] 50 mg PO Q4H PRN #7 tab 01/09/18 [Rx] Past Medical History HEENT History: Reports: Cataract, Impaired Vision Other HEENT History: wears glasses Cardiovascular History: Reports: Angina, Bypass, CAD, Heart Failure, High Cholesterol, Hypertension, [place], PTCA, Stents Respiratory History: Reports: COPD, Sleep Apnea Other Respiratory History: supplemental oxygen at home Musculoskeletal History: Reports: Other (See Below) Other Musculoskeletal History: chronic pain Psychiatric History: Reports: Anxiety, Panic Attack, PTSD Endocrine/Metabolic History: Reports: Obesity/BMI 30+ - Infectious Disease History Infectious Disease History: Reports: Chicken Pox, Measles, Mumps - Past Surgical History Cardiovascular Surgical History: Reports: Coronary Artery Bypass, Coronary Artery Stent Other Cardiovascular Surgeries/Procedures: 10 stents with 3 vessel CABG GI Surgical History: Reports: Appendectomy, Other (See Below) Other GI Surgeries/Procedures: exploratory lap Social & Family History - Family History Family Medical History: Noncontributory - Tobacco Use Smoking Status *Q: Unknown Ever Smoked Years of Tobacco use: 30 Packs/Tins Daily: 1 Used Tobacco, but Quit: Yes Month Tobacco Last Used: 6 years ago Second Hand Smoke Exposure: No - Caffeine Use Caffeine Use: Reports: None - Alcohol Use Days Per Week of Alcohol Use: 7 Number of Drinks Per Day: 3 Total Drinks Per Week: 21 - Recreational Drug Use Recreational Drug Use: No ED ROS GENERAL - Review of Systems Review Of Systems: See Below Constitutional: Reports: No Symptoms HEENT: Reports: No Symptoms Respiratory: Reports: Shortness of Breath Cardiovascular: Reports: No Symptoms Endocrine: Reports: No Symptoms GI/Abdominal: Reports: No Symptoms : Reports: No Symptoms Musculoskeletal: Reports: No Symptoms Skin: Reports: No Symptoms Neurological: Reports: Headache (chronic intermittant) Psychiatric: Reports: No Symptoms Hematologic/Lymphatic: Reports: No Symptoms Immunologic: Reports: No Symptoms - Physical Exam Exam: See Below Exam Limited By: Respiratory Distress (on home O2) General Appearance: Alert, WD/WN, Mild Distress Eye Exam: Bilateral Eye: EOMI, Normal Inspection Ears: Normal External Exam Nose: Normal Inspection Throat/Mouth: Normal Inspection, Normal Lips Head Exam: Atraumatic, Normocephalic Neck: Normal Inspection, Supple, Non-Tender Respiratory/Chest: Respiratory Distress, Decreased Breath Sounds, Prolonged Expiration Cardiovascular: Normal Peripheral Pulses, Regular Rate, Rhythm, No Edema GI/Abdominal: Normal Bowel Sounds, Soft, Non-Tender (Male) Exam: Deferred Rectal (Males) Exam: Deferred Neuro Exam (Abbreviated): Alert, Oriented, CN II-XII Intact, Normal Cognition, Normal Gait, No Motor/Sensory Deficits Back Exam: Normal Inspection, Full Range of Motion Extremities: Normal Inspection, Normal Range of Motion, Non-Tender, No Pedal Edema Psychiatric: Normal Affect, Normal Mood Skin Exam: Warm, Dry, Intact, Normal Color, No Rash Course - Vital Signs Text/Narrative:: 57 y.o.w.m with a h/o COPD, om home O2, chronic intermittand headache, came to the ed with his due to SOBand headache. Pt was not using his O2 for a few hours while driving from [place] to [place]. Pt is not compliant meds and takes them "sometimes" No other acute medical issues. BP 142/72 pulse 94 Temp 36.6 pulse ox 94 on 4 liters O2 by [place]. PE: Morbid obese w m in resp distress Impression: Tension Headache, COPD exacerbation, poor compliance Tx: Pt refused solu medrol, Toradol. Allowed receiving a Duoneb, however Reexam: improved Plan: D/C with instructions Last Recorded V/S: Last Vital Signs Temp 36.6 C 01/09/18 12:20 Pulse 78 01/09/18 12:20 Resp 18 01/09/18 12:20 BP 117/55 L 01/09/18 12:20 Pulse Ox 95 01/09/18 12:20 - Orders/Labs/Meds Orders: Active Orders 24 hr Category Date Time Status RT Aerosol Therapy [RC] ASDIRECTED Care 01/09/18 11:19 Active Chest 2V [CR] Stat Exams 01/09/18 11:19 Taken Meds: Medications Discontinued Medications Generic Name Dose Route Start Last Admin Trade Name Freq PRN Reason Stop Dose Admin Albuterol/Ipratropium 3 ml 01/09/18 11:18 01/09/18 12:08 Duoneb 3.0-0.5 Mg/3 Ml NEB 01/09/18 11:19 3 ml ONETIME ONE Administration Methylprednisolone Sodium Succinate 125 mg 01/09/18 11:19 01/09/18 12:15 Solu-Medrol IM 01/09/18 11:20 Not Given ONETIME ONE Departure - Departure Time of Disposition: 12:05 Disposition: Home, Self-Care 01 Condition: Good Clinical Impression: Tension headache COPD (chronic obstructive pulmonary disease) Qualifiers: COPD type: emphysema Emphysema type: unspecified Qualified Code(s): J43.9 - Emphysema, unspecified - Discharge Information Prescriptions: traMADol [Ultram] 50 mg PO Q4H PRN #7 tab PRN Reason: severe headache only Instructions: Tramadol tablets, Home Oxygen Use, Adult, Tension Headache, Adult Referrals: PCP,None [Primary Care Provider] - Forms: ED Department Discharge Additional Instructions: Please cont your current meds, please take ultram for severe headache, please f/ u, come back if your symptoms get worse acutely. - My Orders Last 24 Hours: My Active Orders 01/09/18 11:19 RT Aerosol Therapy [RC] ASDIRECTED Chest 2V [CR] Stat - Assessment/Plan Last 24 Hours: My Active Orders 01/09/18 11:19 RT Aerosol Therapy [RC] ASDIRECTED Chest 2V [CR] Stat
[2018-01-09 12:26] VITALS: BP 117/55
--- NOTE | 2018-01-12 11:48 | CR ---
INDICATION: Short of breath. CHEST: PA and lateral views of the chest 01/09/2018 were compared with 2016 and 06/17/2017, again revealing median sternotomy with cardiomegaly - generalized cardiomegaly. The aorta is calcified and somewhat tortuous. Findings remain compatible with COPD. Mild to moderate degenerative changes are noted in the mid to lower thoracic spine. The lungs appear to be free of a definite active infiltrate or effusion - no consolidating pneumonia or effusion was seen. However, it is difficult to exclude a mild degree of pulmonary vascular congestion with the slightly prominent upper lung field pulmonary vasculature noted. This could be on the basis of COPD and should be correlated clinically in that regard. IMPRESSION: 1. No definite acute process but difficult to exclude minimal or early CHF versus the appearance of congestion being produced by COPD. 2. COPD. 3. ASHD with cardiomegaly and postsurgical change. MTDD
== END 2018-01-09 12:20 | disposition home or self-care (01) ==
LOC: FB.ED 10:47
DX: G44.209 Tension-type headache, unspecified, not intractable (principal); J43.9 Emphysema, unspecified; I11.0 Hypertensive heart disease with heart failure; I50.9 Heart failure, unspecified; E78.00 Pure hypercholesterolemia, unspecified; Z88.6 Allergy status to analgesic agent; Z79.82 Long term (current) use of aspirin; Z79.899 Other long term (current) drug therapy; Z87.891 Personal history of nicotine dependence
CPT/HCPCS: 71046; 94640; 99283; J7620

== ENCOUNTER 2018-02-13 12:43 | Emergency (ER) | payer MEDICAID ==
--- NOTE | 2018-02-13 14:10 | CR ---
INDICATION: Accidentally kicked bed frame three days ago. RIGHT TOES: Three views of the right 4th toe revealed an oblique fracture with slight lateral offset of the distal fracture fragment at the shaft and distal metaphysis of the proximal phalanx of the 4th toe. Some impaction fracture fragments and medial angulation at the fracture site is noted. Soft tissue swelling is suggested at the 4th toe. No other definite bone or joint abnormality was identified. IMPRESSION: Proximal phalangeal fracture of the 4th toe with mild deformity. [facility]
--- NOTE | 2018-02-13 15:00 | EDM.PDOC ---
ED HPI GENERAL MEDICAL PROBLEM - General Chief Complaint: Lower Extremity Injury/Pain Stated Complaint: HURT RT FOOT/TOE Time Seen by Provider: 02/13/18 12:43 Source of Information: Reports: Patient, Family History Limitations: Reports: Physical Impairment (rith 4th toe pain , h/o COPD) - History of Present Illness INITIAL COMMENTS - FREE TEXT/NARRATIVE: 58 y.o.w.m with a h/o COPD came with his to the ed after he injured his right 4th toe after "kicking" an object at home. No N/V/D. Pt is on 2 liters Home O2 by [place]. Pt denies SOB while on O2. No other acute medical issues. BP 151/ 85 Pulse 87 RR 20 Pulse ox 100% on 2 liters Temp 36.8 Onset: Today Onset Date: 02/13/18 Onset Time: 10:00 Duration: Hour(s): Location: Reports: Lower Extremity, Right Quality: Reports: Ache Severity: Mild Improves with: Reports: Rest Worsens with: Reports: Movement Context: Reports: Trauma (right 4th toe) - Related Data Allergies Allergy/AdvReac Type Severity Reaction Status Date / Time ketorolac [From Toradol] Allergy Vomiting Verified 02/13/18 13:24 Home Meds: Home Meds Metoprolol Tartrate 150 mg PO DAILY 03/24/17 [History] Nitroglycerin [Nitrostat] 0.4 mg SL ASDIRECTED PRN 03/24/17 [History] Clopidogrel [Plavix] 75 mg PO DAILY 03/28/17 [History] Aspirin 1 tab PO DAILY 06/17/17 [History] Budesonide/Formoterol Fumarate [Symbicort 160-4.5 Mcg Inhaler] 1 puff INH DAILY PRN 06/25/17 [History] predniSONE 20 mg PO WITHBREAKFAST 07/27/17 [History] traMADol [Ultram] 50 mg PO Q4H PRN #7 tab 01/09/18 [Rx] Past Medical History HEENT History: Reports: Cataract, Impaired Vision Other HEENT History: wears glasses Cardiovascular History: Reports: Angina, Bypass, CAD, Heart Failure, High Cholesterol, Hypertension, [place], PTCA, Stents Respiratory History: Reports: COPD, Sleep Apnea Other Respiratory History: supplemental oxygen at home Musculoskeletal History: Reports: Other (See Below) Other Musculoskeletal History: chronic pain Psychiatric History: Reports: Anxiety, Panic Attack, PTSD Endocrine/Metabolic History: Reports: Obesity/BMI 30+ - Infectious Disease History Infectious Disease History: Reports: Chicken Pox, Measles, Mumps - Past Surgical History Cardiovascular Surgical History: Reports: Coronary Artery Bypass, Coronary Artery Stent Other Cardiovascular Surgeries/Procedures: 10 stents with 3 vessel CABG GI Surgical History: Reports: Appendectomy, Other (See Below) Other GI Surgeries/Procedures: exploratory lap Social & Family History - Family History Family Medical History: Noncontributory - Tobacco Use Smoking Status *Q: Unknown Ever Smoked Years of Tobacco use: 30 Packs/Tins Daily: 1 Used Tobacco, but Quit: Yes Month/Year Tobacco Last Used: 6 years ago Second Hand Smoke Exposure: No - Caffeine Use Caffeine Use: Reports: None - Alcohol Use Days Per Week of Alcohol Use: 7 Number of Drinks Per Day: 3 Total Drinks Per Week: 21 - Recreational Drug Use Recreational Drug Use: No Review of Systems - Review of Systems Review Of Systems: See Below Constitutional: Reports: No Symptoms Eyes: Reports: No Symptoms Ears: Reports: No Symptoms Nose: Reports: No Symptoms Mouth/Throat: Reports: No Symptoms Respiratory: Reports: No Symptoms Cardiovascular: Reports: No Symptoms GI/Abdominal: Reports: No Symptoms Genitourinary: Reports: No Symptoms Musculoskeletal: Reports: Foot Pain Skin: Reports: No Symptoms Neurological: Reports: No Symptoms Psychiatric: Reports: No Symptoms ED EXAM, GENERAL - Physical Exam Exam: See Below Exam Limited By: No Limitations General Appearance: Alert, WD/WN, Mild Distress Eye Exam: Bilateral Eye: Normal Inspection Ears: Normal External Exam Ear Exam: Bilateral Ear: Auricle Normal Nose: Normal Inspection, Normal Mucosa Throat/Mouth: Normal Inspection, Normal Lips Head: Atraumatic, Normocephalic Neck: Normal Inspection, Supple, Non-Tender, Full Range of Motion Respiratory/Chest: No Respiratory Distress, Lungs Clear, Decreased Breath Sounds (copd, as per pt: [place]) Cardiovascular: Normal Peripheral Pulses, Regular Rate, Rhythm, No Edema, No Gallop Peripheral Pulses: 1+: Brachial (L) GI/Abdominal: Normal Bowel Sounds, Soft (Male) Exam: No Hernia Rectal (Males) Exam: Deferred Back Exam: Normal Inspection, Full Range of Motion Extremities: No Pedal Edema, Normal Capillary Refill, Other (deformed right toes ) Neurological: Alert, Oriented, CN II-XII Intact, Normal Cognition, Abnormal Gait (r 4th toe pain) Psychiatric: Normal Affect, Normal Mood Skin Exam: Warm, Dry, Intact, Normal Color, No Rash Lymphatic: No Adenopathy Course - Vital Signs Text/Narrative:: 58 y.o.w.m with a h/o COPD came with his to the ed after he injured his right 4th toe after "kicking" an object at home. No N/V/D. Pt is on 2 liters Home O2 by [place]. Pt denies SOB while on O2. No other acute medical issues. BP 151/ 85 Pulse 87 RR 20 Pulse ox 100% on 2 liters Temp 36.8 PE: WNWD W M with COPD, on Home O2 came to the ed due to pain at his right 4th toe after trauma. Imaging: comminuted fax right 4th toe, closed Impression: Right 4th toe communited fx, closed. Tx: Boot Reexam: Pt was amulating fine with the boot Plan: D/C with instruction Last Recorded V/S: Last Vital Signs Temp 36.5 C 02/13/18 12:43 Pulse 92 02/13/18 12:43 Resp 20 02/13/18 12:43 BP 151/83 H 02/13/18 12:43 Pulse Ox 100 02/13/18 12:43 Departure - Departure Time of Disposition: 14:57 Disposition: Home, Self-Care 01 Condition: Good Clinical Impression: Toe fracture, right Qualifiers: Encounter type: initial encounter Fracture type: closed Phalanx: distal Salter- High Fracture Type: unspecified configuration - Discharge Information Instructions: Toe Fracture, Ulig-[id number] Referrals: Bishop Quach MD [Primary Care Provider] - Ozzy Landrum DO [Physician] - Forms: ED Department Discharge Additional Instructions: Rset, ICE and elevation, Tylenol for pain, please follow up with Dr. Diallo sprague next week, please come back to the if your symptoms get worse acutely
[2018-02-13 18:07] VITALS: BP 151/88
== END 2018-02-13 15:10 | disposition home or self-care (01) ==
LOC: FB.ED 12:43
DX: S92.511A Displaced fracture of proximal phalanx of right lesser toe(s), initial encounter for closed fracture (principal); I11.0 Hypertensive heart disease with heart failure; I50.9 Heart failure, unspecified; J44.9 Chronic obstructive pulmonary disease, unspecified; F41.9 Anxiety disorder, unspecified; F32.9 Major depressive disorder, single episode, unspecified; Z88.6 Allergy status to analgesic agent; Z87.891 Personal history of nicotine dependence; Z79.899 Other long term (current) drug therapy; Z79.82 Long term (current) use of aspirin; W22.8XXA Striking against or struck by other objects, initial encounter; Y92.009 Unspecified place in unspecified non-institutional (private) residence as the place of occurrence of the external cause
CPT/HCPCS: 73660-T8; 99283

== ENCOUNTER 2018-03-05 18:04 | Emergency (ER) | payer MEDICAID ==
[2018-03-05] MEDS ORDERED: methylPREDNISolone Sodium Succinate 125 MG/2 ML SDV IVPUSH ONE (18:20)
[2018-03-05] MEDS ORDERED: Aspirin 81 MG Tab.Chew PO ONE (18:20)
[2018-03-05] MEDS ORDERED: Enoxaparin 100 MG/1 ML Syringe SUBCUT ONE (19:48)
[2018-03-05] MEDS ORDERED: Acetaminophen 1,000 MG in Premix Bag 1 BAG IV ONE (19:49)
[2018-03-05] MEDS ORDERED: Nitroglycerin/D5W 25 MG/250 ML BOTTLE IV SCH (20:00)
[2018-03-05] MEDS ORDERED: Morphine 10 MG/ML Syringe IM ONE (20:28)
[2018-03-05] MEDS ORDERED: Ondansetron 8 MG Tab.DIS PO ONE (20:31)
[2018-03-05 21:23] VITALS: BP 114/75
--- NOTE | 2018-03-06 13:41 | CR ---
INDICATION: Short of breath. CHEST: Two AP portable upright views of the chest were obtained, 03/05/2018, and compared with 01/09/2018 and 07/26/2017. The aorta is tortuous with minimal calcification in the arch. The heart is enlarged, similar to previous studies. A definite active infiltrate or effusion was not identified. The lungs appear to be somewhat hyperaerated, raising question of COPD, as previously. IMPRESSION: 1. No acute process. 2. Possible COPD - correlate clinically. 3. ASHD with cardiomegaly and post median sternotomy change. MTDD
--- NOTE | 2018-03-09 17:09 | ER ---
DATE SEEN: 03/05/2018 TIME SEEN: The patient was seen on arrival at 1810 hours. CHIEF COMPLAINT: Chest pain. HISTORY OF PRESENT ILLNESS: The patient had chest pain, 10/10 chest pain. The patient had onset of chest pain yesterday about 10 a.m., 5 to 6/10 in intensity. It has gradually progressively increased throughout the day. He did not sleep all last night and now chest pain has crept up to a 9 to 10/10 in intensity. No associated symptoms of lightheadedness, shortness of breath, diaphoresis, abdominal pain, or diarrhea. He has pain that radiates from his anterior left chest circumferentially over the top of his neck. It radiates down the left lateral paraspinal muscles. The patient denies acid peptic disease symptoms. PAST MEDICAL HISTORY: Significant for ethanolism, headaches, COPD, recent right toe fracture. In 1977, he had a myocardial infarction. In 2003, he had a myocardial infarction. Since then, he has had 10 stents and a 3-vessel bypass. He has been followed by client service representative, last client service representative was seen in [place] approximately 1 to 2 months ago. ALLERGIES: Toradol. MEDICATIONS: 1. Tramadol. 2. Prednisone 20 mg a.m. He is not sure why he is on prednisone. He has been on prednisone 20 mg for the last 3 months. 3. Nitroglycerin. 4. Metoprolol. 5. Clopidogrel 75 mg. 6. Symbicort 1 puff daily. 7. Aspirin 81 mg daily. He has not seen a training intern. No history of rheumatoid arthritis. Unaware of having had an echo or his ejection fraction (I am sure he has already had one). REVIEW OF SYSTEMS: HEENT: He wears glasses, decreased hearing. CARDIORESPIRATORY: As noted above. He denies shortness of breath, orthopnea and dyspnea on exertion, or swelling of ankles or congestive heart failure. GI: Denies gastrointestinal symptoms, nausea, vomiting, diarrhea, constipation, blood in the stool, black tarry stool, hematochezia. : He has mild prostatism. Does not have difficulty passing urine. MUSCULOSKELETAL: For some reason he is on prednisone, we do not know. He denies arthritis. PHYSICAL EXAMINATION: VITAL SIGNS: Blood pressure 103/71, heart rate 92 and regular, respirations 18, oxygen saturation 98% on 2 L, this went down to 93% on 2 L. Weight 111 kg. HEENT: Wears glasses, slightly decreased hearing. Mildly overweight, enjoys dominating the conversation, but he is friendly, interactive, and enjoys joking and also has somewhat of a playful attitude. Pharynx without abnormality. NECK: No bruits. No masses. No megaly. No tracheal tug. LUNGS: Clear without rales, rhonchi, or wheezes. HEART: S1, S2. Distant heart sounds. Sternotomy incision healed. Nontender. ABDOMEN: Bulbous, no hepatosplenomegaly. At one point, I thought perhaps I might feel the liver edge, but I do not feel the liver edge. No CVA percussion tenderness. RECTAL: Not performed. EXTREMITIES: Lower extremities without edema. Dorsalis pedis, slightly decreased pulse. Radial pulses normal. EKG: Low voltage, flattened T-waves, no ST depression or elevation. LABORATORY FINDINGS: Hemoglobin 15.4, white count 7400, PMNs 47, lymphocytes 47, monos 5. Venous gases 7.38, pCO2 of 37, CO2 of 23. Complete metabolic panel normal with sodium 143, potassium 3.5 (low normal), chloride 106, CO2 of 24, BUN 11, creatinine 0.9, calcium 8.5. Troponin less than 0.017. CXR: Marked cardiomegaly, transverse chest diameter 327 mm, heart diameter 215 mm- greater than 60% size of the heart and lung.He has wide mediastinum. No suggestion of aortic enlargement - however descending aorta is not clearly seen as it descends behing the heart. ASSESSMENT: 1. The patient is a vasculopath with 3-vessel CABG, also 10 stents, previous myocardial infraction x2. 2. Has chest pain, unstable angina. 3. Hypertension. 4. No evidence for hypoxia. 5. Chronic obstructive lung disease. 6. History of headaches, none presently. 7. Bee sting allergies, ketorolac allergy. 8. History of alcohol abuse. 9. Obesity 10. no vascular access. He is not needed immediate access as he is stable. Access was attempted several times. IO notemergentyly needed. Other diagnosis, unable to obtain IV - patient has history of needing multiple attempts by Anesthesia without success. Last time he was in [place] it took [address] IV by staff without success and a central line had to be placed. He will need a central line to provide IV access PLAN: I have discussed the patient's status with Dr. Horvath at [facility]. The patient will be transferred to [facility]. He was given Lovenox subcutaneously 1 mg/kilo. The patient has received 324 mg of aspirin. /[id number] ANN MARIE/SHAILESH BOLTOND
== END 2018-03-05 21:32 ==
LOC: FB.ED 18:04
DX: I20.0 Unstable angina (principal); J44.9 Chronic obstructive pulmonary disease, unspecified; I10 Essential (primary) hypertension; I25.2 Old myocardial infarction; Z95.1 Presence of aortocoronary bypass graft; Z95.5 Presence of coronary angioplasty implant and graft; Z88.6 Allergy status to analgesic agent; Z91.030 Bee allergy status; E66.9 Obesity, unspecified
CPT/HCPCS: 36415; 71045; 80053; 82803; 84484; 85025; 85379; 93005; 96372; 99285; A9270; J1650; J2270

== ENCOUNTER 2018-03-18 10:20 | Emergency (ER) | payer MEDICAID ==
--- NOTE | 2018-03-18 11:25 | EDM.PDOC ---
ED HPI GENERAL MEDICAL PROBLEM - General Chief Complaint: Chest Pain Stated Complaint: RT RIB PAIN Time Seen by Provider: 03/18/18 11:00 Source of Information: Reports: Patient, Old Records History Limitations: Reports: No Limitations - History of Present Illness INITIAL COMMENTS - FREE TEXT/NARRATIVE: Georges comes into [facility] ED with R anterior chest pains following a fall 3 days ago while dancing with his daughter. Her apparently lost balance and fell against some chairs. THere was no LOC. There is residual R anterior chest pain worse with movement and coughing. He has been managing with analgesics from home. - Related Data Allergies Allergy/AdvReac Type Severity Reaction Status Date / Time ketorolac [From Toradol] Allergy Vomiting Verified 03/05/18 18:21 Home Meds: Home Meds Metoprolol Tartrate 150 mg PO DAILY 03/24/17 [History] Nitroglycerin [Nitrostat] 0.4 mg SL ASDIRECTED PRN 03/24/17 [History] Clopidogrel [Plavix] 75 mg PO DAILY 03/28/17 [History] Aspirin 81 mg PO DAILY 06/17/17 [History] Budesonide/Formoterol Fumarate [Symbicort 160-4.5 Mcg Inhaler] 1 puff INH DAILY PRN 06/25/17 [History] predniSONE 20 mg PO WITHBREAKFAST 07/27/17 [History] traMADol [Ultram] 50 mg PO Q4H PRN #7 tab 01/09/18 [Rx] Past Medical History HEENT History: Reports: Cataract, Impaired Vision Other HEENT History: wears glasses Cardiovascular History: Reports: Angina, Bypass, CAD, Heart Failure, High Cholesterol, Hypertension, [place], PTCA, Stents Respiratory History: Reports: COPD, Sleep Apnea Other Respiratory History: supplemental oxygen at home Musculoskeletal History: Reports: Other (See Below) Other Musculoskeletal History: chronic pain Psychiatric History: Reports: Anxiety, Panic Attack, PTSD Endocrine/Metabolic History: Reports: Obesity/BMI 30+ - Infectious Disease History Infectious Disease History: Reports: Chicken Pox, Measles, Mumps - Past Surgical History Cardiovascular Surgical History: Reports: Coronary Artery Bypass, Coronary Artery Stent Other Cardiovascular Surgeries/Procedures: 10 stents with 3 vessel CABG GI Surgical History: Reports: Appendectomy, Other (See Below) Other GI Surgeries/Procedures: exploratory lap Social & Family History - Family History Family Medical History: Noncontributory - Tobacco Use Smoking Status *Q: Never Smoker Years of Tobacco use: 30 Packs/Tins Daily: 1 Used Tobacco, but Quit: Yes Month/Year Tobacco Last Used: 6 years ago Second Hand Smoke Exposure: No - Caffeine Use Caffeine Use: Reports: None - Alcohol Use Days Per Week of Alcohol Use: 7 Number of Drinks Per Day: 3 Total Drinks Per Week: 21 - Recreational Drug Use Recreational Drug Use: No ED ROS GENERAL - Review of Systems Review Of Systems: See Below Constitutional: Reports: No Symptoms HEENT: Reports: No Symptoms Respiratory: Reports: Shortness of Breath, Cough Cardiovascular: Reports: Chest Pain, Dyspnea on Exertion Endocrine: Reports: No Symptoms GI/Abdominal: Reports: No Symptoms : Reports: No Symptoms Musculoskeletal: Reports: Back Pain Skin: Reports: No Symptoms Neurological: Reports: No Symptoms Psychiatric: Reports: Anxiety Hematologic/Lymphatic: Reports: No Symptoms Immunologic: Reports: No Symptoms ED EXAM, GENERAL - Physical Exam Exam: See Below Exam Limited By: No Limitations General Appearance: Alert, WD/WN, No Apparent Distress, Obese Throat/Mouth: Normal Inspection, Normal Oropharynx Head: Normocephalic Neck: Normal Inspection, Supple, Non-Tender, Full Range of Motion Respiratory/Chest: No Respiratory Distress, No Accessory Muscle Use, Decreased Breath Sounds, Prolonged Expiration, Other (R anterior chest pain overlying ribs #6, #7) Cardiovascular: Regular Rate, Rhythm, No Murmur GI/Abdominal: Normal Bowel Sounds, Soft, Non-Tender, No Organomegaly, No Distention, No Mass (Male) Exam: Deferred Rectal (Males) Exam: Deferred Back Exam: Normal Inspection Extremities: Normal Inspection Neurological: Alert, Oriented, CN II-XII Intact, Normal Cognition, No Motor/ Sensory Deficits Psychiatric: Normal Affect, Normal Mood Skin Exam: Warm, Dry, Intact Lymphatic: No Adenopathy Course - Vital Signs Text/Narrative:: I reviewed x rays of R chest with Radiology, and no fx were seen. This injury will be managed as rib contusions, and was discussed at length with patient. - Orders/Labs/Meds Orders: Active Orders 24 hr Category Date Time Status Ribs 2V w Chest Rt [CR] Stat Exams 03/18/18 11:19 Ordered Departure - Departure Time of Disposition: 12:01 Disposition: Home, Self-Care 01 Condition: Fair Clinical Impression: Contusion of rib on right side Qualifiers: Encounter type: initial encounter Qualified Code(s): S20.211A - Contusion of right front wall of thorax, initial encounter - Discharge Information Referrals: PCP,None [Primary Care Provider] - Forms: ED Department Discharge - Problem List & Annotations (1) Contusion of rib on right side SNOMED Code(s): 757946810 Code(s): S20.211A - CONTUSION OF RIGHT FRONT WALL OF THORAX, INITIAL ENCOUNTER Status: Acute Current Visit: Yes Annotation/Comment:: I suggested cool packs for comfort, analgesic of choice, and avoidance of any heavy lifting, stooping or bending. Qualifiers: Encounter type: initial encounter Qualified Code(s): S20.211A - Contusion of right front wall of thorax, initial encounter - Problem List Review Problem List Initiated/Reviewed/Updated: Yes - My Orders Last 24 Hours: My Active Orders 03/18/18 11:19 Ribs 2V w Chest Rt [CR] Stat - Assessment/Plan Last 24 Hours: My Active Orders 03/18/18 11:19 Ribs 2V w Chest Rt [CR] Stat Plan: Follow up with PCP if needed.
[2018-03-18 14:11] VITALS: BP 150/85
--- NOTE | 2018-03-18 14:41 | CR ---
INDICATION: Fell into chairs 3 days ago. Pain right anterior chest. RIGHT RIBS WITH CHEST: CHEST: PA view of the chest 03/18/2018, compared with 03/05/2018 and 01/09/2018 , again reveals the heart to be enlarged, with post median sternotomy changes. A definite active infiltrate, effusion, contusion, or pneumothorax was not identified. Apical pleural thickening is again noted. IMPRESSION: No acute process. RIGHT RIBS: Seven views of the right ribs were obtained and revealed no displaced fracture or other definite bony abnormality. Report was given to Dr. Sosa in person immediately after the examination. REGULO
== END 2018-03-18 12:10 | disposition home or self-care (01) ==
LOC: FB.ED 10:20
DX: S20.211A Contusion of right front wall of thorax, initial encounter (principal); I11.0 Hypertensive heart disease with heart failure; I50.9 Heart failure, unspecified; Z87.891 Personal history of nicotine dependence; Z79.82 Long term (current) use of aspirin; Z79.899 Other long term (current) drug therapy; Z88.6 Allergy status to analgesic agent; W19.XXXA Unspecified fall, initial encounter; W22.8XXA Striking against or struck by other objects, initial encounter
CPT/HCPCS: 71101-RT; 99283

== ENCOUNTER 2018-03-26 04:34 | Emergency (ER) | payer MEDICAID ==
[2018-03-26 04:52] VITALS: BP 149/82
[2018-03-26] MEDS ORDERED: Acetaminophen 500 MG Tab PO ONE (05:06)
[2018-03-26] MEDS ORDERED: Ibuprofen 600 MG Tab PO ONE (05:06)
--- NOTE | 2018-03-26 05:12 | EDM.PDOC ---
ED HPI GENERAL MEDICAL PROBLEM - General Chief Complaint: General Stated Complaint: RT SIDE PAIN Time Seen by Provider: 03/26/18 05:07 Source of Information: Reports: Patient History Limitations: Reports: No Limitations - History of Present Illness INITIAL COMMENTS - FREE TEXT/NARRATIVE: c/o R rib pain fell 8d ago, came to ED, XR R ribs x 7 views was neg as per Dr Nayak still pain says he is not taking anything for pain other 2 Tramadol a day still with pain, wants meds for pain APAP and ibuprofen recommended, pt said that he cannot afford OTC meds here with his last saw PCP Dr Quach 1m ago Rt rib Pain Score (Numeric/FACES): 10 - Related Data Allergies Allergy/AdvReac Type Severity Reaction Status Date / Time ketorolac [From Toradol] Allergy Vomiting Verified 03/26/18 04:44 Home Meds: Home Meds Metoprolol Tartrate 150 mg PO DAILY 03/24/17 [History] Nitroglycerin [Nitrostat] 0.4 mg SL ASDIRECTED PRN 03/24/17 [History] Clopidogrel [Plavix] 75 mg PO DAILY 03/28/17 [History] Aspirin 81 mg PO DAILY 06/17/17 [History] Budesonide/Formoterol Fumarate [Symbicort 160-4.5 Mcg Inhaler] 1 puff INH DAILY PRN 06/25/17 [History] predniSONE 20 mg PO WITHBREAKFAST 07/27/17 [History] Ibuprofen 600 mg PO QID #30 tablet 03/26/18 [Rx] traMADol [Ultram] 50 mg PO Q4H PRN 03/26/18 [History] Past Medical History HEENT History: Reports: Cataract, Impaired Vision Other HEENT History: wears glasses Cardiovascular History: Reports: Angina, Bypass, CAD, Heart Failure, High Cholesterol, Hypertension, [place], PTCA, Stents Respiratory History: Reports: COPD, Sleep Apnea Other Respiratory History: supplemental oxygen at home Musculoskeletal History: Reports: Other (See Below) Other Musculoskeletal History: chronic pain Psychiatric History: Reports: Anxiety, Panic Attack, PTSD Endocrine/Metabolic History: Reports: Obesity/BMI 30+ - Infectious Disease History Infectious Disease History: Reports: Chicken Pox, Measles, Mumps - Past Surgical History Cardiovascular Surgical History: Reports: Coronary Artery Bypass, Coronary Artery Stent Other Cardiovascular Surgeries/Procedures: 10 stents with 3 vessel CABG GI Surgical History: Reports: Appendectomy, Other (See Below) Other GI Surgeries/Procedures: exploratory lap Social & Family History - Family History Family Medical History: Noncontributory - Tobacco Use Smoking Status *Q: Never Smoker - Caffeine Use Caffeine Use: Reports: Coffee - Recreational Drug Use Recreational Drug Use: No ED ROS GENERAL - Review of Systems Review Of Systems: See Below Constitutional: Reports: No Symptoms HEENT: Reports: No Symptoms Respiratory: Reports: No Symptoms Cardiovascular: Reports: Other (R rib pain) Endocrine: Reports: No Symptoms GI/Abdominal: Reports: No Symptoms : Reports: No Symptoms Musculoskeletal: Reports: No Symptoms Skin: Reports: No Symptoms Neurological: Reports: No Symptoms Psychiatric: Reports: No Symptoms Hematologic/Lymphatic: Reports: No Symptoms Immunologic: Reports: No Symptoms ED EXAM, GENERAL - Physical Exam Exam: See Below Exam Limited By: No Limitations General Appearance: Alert, WD/WN, No Apparent Distress Ears: Normal External Exam, Hearing Grossly Normal Nose: Normal Inspection, Normal Mucosa, No Blood Throat/Mouth: Normal Inspection, Normal Lips, Normal Voice, No Airway Compromise Head: Atraumatic, Normocephalic Neck: Normal Inspection, Supple, Non-Tender, Full Range of Motion Respiratory/Chest: No Respiratory Distress, Lungs Clear, Normal Breath Sounds, No Accessory Muscle Use, Other (mild non localized tender of the R mid thorax ant/lat/pos, no midline tender, c/w contusion) Cardiovascular: Regular Rate, Rhythm, No Edema, No JVD GI/Abdominal: Soft, Non-Tender, No Distention Back Exam: Normal Inspection, Full Range of Motion, NT Extremities: Normal Inspection, Normal Range of Motion, Non-Tender, No Pedal Edema Neurological: Alert, Oriented, CN II-XII Intact, Normal Cognition, No Motor/ Sensory Deficits Psychiatric: Normal Affect, Normal Mood Skin Exam: Warm, Dry, Intact, Normal Color, No Rash Lymphatic: No Adenopathy Course - Vital Signs Last Recorded V/S: Last Vital Signs Temp 36.4 C 03/26/18 04:35 Pulse 92 03/26/18 04:35 Resp 18 03/26/18 04:35 BP 149/82 H 03/26/18 04:35 Pulse Ox 99 03/26/18 04:35 - Orders/Labs/Meds Orders: Active Orders 24 hr Category Date Time Status Acetaminophen [Tylenol Extra Strength] Med 05/10/18 05:06 Once 1,000 mg PO ONETIME ONE Ibuprofen [Motrin] Med 03/26/18 05:06 Once 600 mg PO ONETIME ONE Departure - Departure Time of Disposition: 05:10 Disposition: Home, Self-Care 01 Condition: Good Clinical Impression: Contusion of rib on right side Qualifiers: Encounter type: initial encounter Qualified Code(s): S20.211A - Contusion of right front wall of thorax, initial encounter - Discharge Information Prescriptions: Ibuprofen 600 mg PO QID #30 tablet Instructions: Rib Contusion Referrals: Bishop Quach MD [Primary Care Provider] - Additional Instructions: For pain and inflammation, take ibuprofen 600 mg 4 times a day for 7 days. For pain and inflammation, take acetaminophen 500 mg 2 tabs 4 times a day for 7 days. Use heat for 10 minutes every 2 hours while awake. See Dr Quach in 4 days. - My Orders Last 24 Hours: My Active Orders 03/26/18 05:06 Acetaminophen [Tylenol Extra Strength] 1,000 mg PO ONETIME ONE Ibuprofen [Motrin] 600 mg PO ONETIME ONE - Assessment/Plan Last 24 Hours: My Active Orders 03/26/18 05:06 Acetaminophen [Tylenol Extra Strength] 1,000 mg PO ONETIME ONE Ibuprofen [Motrin] 600 mg PO ONETIME ONE
== END 2018-03-26 05:15 | disposition home or self-care (01) ==
LOC: FB.ED 04:34
DX: S20.211A Contusion of right front wall of thorax, initial encounter (principal); I11.0 Hypertensive heart disease with heart failure; I50.9 Heart failure, unspecified; Z88.8 Allergy status to other drugs, medicaments and biological substances; Z79.899 Other long term (current) drug therapy; W19.XXXA Unspecified fall, initial encounter
CPT/HCPCS: 99283; A9270-GY

== ENCOUNTER 2018-05-25 20:38 | Emergency (ER) | payer MEDICAID ==
[2018-05-25] MEDS ORDERED: Albuterol/Ipratropium 3.0-0.5 MG/3 ML Neb Soln NEB ONE (20:50)
--- NOTE | 2018-05-25 20:50 | EDM.PDOC ---
ED HPI GENERAL MEDICAL PROBLEM - General Stated Complaint: GENERAL Time Seen by Provider: 05/25/18 20:38 Source of Information: Reports: Patient, Family History Limitations: Reports: Uncooperative - History of Present Illness INITIAL COMMENTS - FREE TEXT/NARRATIVE: 58 y.o.w.m with h/o COPD, on home O2, chronic low back pain, came with his to the ed after he fell backwards from a chair, which broke, from his weight(?) . No N/V/D or dizziness, Pt is a poor historian, denies ETOH abuse, it hurts to void. BP 120/67 Pulse 106 RR 20 Pulse ox 98% on 2 liters O2 Temp 36.8. Onset Date: 05/25/18 Onset Time: 18:00 Duration: Hour(s):, Intermittent Location: Reports: Back Quality: Reports: Ache, Dull, Pressure, Throbbing Severity: Moderate Improves with: Reports: Cold Therapy, Rest Worsens with: Reports: Movement Context: Reports: Other (fell on back.) - Related Data Allergies Allergy/AdvReac Type Severity Reaction Status Date / Time ketorolac [From Toradol] Allergy Vomiting Verified 05/25/18 22:56 bee sting Allergy Airway Uncoded 05/25/18 22:57 Tightness Home Meds: Home Meds Metoprolol Tartrate 150 mg PO DAILY 03/24/17 [History] Nitroglycerin [Nitrostat] 0.4 mg SL ASDIRECTED PRN 03/24/17 [History] Clopidogrel [Plavix] 75 mg PO DAILY 03/28/17 [History] Aspirin 81 mg PO DAILY 06/17/17 [History] Budesonide/Formoterol Fumarate [Symbicort 160-4.5 Mcg Inhaler] 1 puff INH DAILY PRN 06/25/17 [History] predniSONE 20 mg PO WITHBREAKFAST 07/27/17 [History] Ibuprofen 600 mg PO QID #30 tablet 03/26/18 [Rx] traMADol [Ultram] 50 mg PO Q4H PRN 03/26/18 [History] Acetaminophen/HYDROcodone [[place] 325-5 MG] 1 tab PO Q6H PRN #6 tablet 05/25/18 [ Rx] Past Medical History HEENT History: Reports: Cataract, Impaired Vision Other HEENT History: wears glasses Cardiovascular History: Reports: Angina, Bypass, CAD, Heart Failure, High Cholesterol, Hypertension, [place], PTCA, Stents Respiratory History: Reports: COPD, Sleep Apnea Other Respiratory History: supplemental oxygen at home Musculoskeletal History: Reports: Other (See Below) Other Musculoskeletal History: chronic pain Psychiatric History: Reports: Anxiety, Panic Attack, PTSD Endocrine/Metabolic History: Reports: Obesity/BMI 30+ - Infectious Disease History Infectious Disease History: Reports: Chicken Pox, Measles, Mumps - Past Surgical History Cardiovascular Surgical History: Reports: Coronary Artery Bypass, Coronary Artery Stent Other Cardiovascular Surgeries/Procedures: 10 stents with 3 vessel CABG GI Surgical History: Reports: Appendectomy, Other (See Below) Other GI Surgeries/Procedures: exploratory lap Social & Family History - Family History Family Medical History: Noncontributory - Caffeine Use Caffeine Use: Reports: Coffee ED ROS GENERAL - Review of Systems Review Of Systems: See Below Constitutional: Reports: No Symptoms HEENT: Reports: No Symptoms Respiratory: Reports: Shortness of Breath Cardiovascular: Reports: No Symptoms Endocrine: Reports: No Symptoms GI/Abdominal: Reports: No Symptoms : Reports: Dysuria Musculoskeletal: Reports: Back Pain Skin: Reports: No Symptoms Neurological: Reports: No Symptoms Psychiatric: Reports: No Symptoms Hematologic/Lymphatic: Reports: No Symptoms Immunologic: Reports: No Symptoms ED EXAM, GENERAL - Physical Exam Exam: See Below Exam Limited By: Physical Impairment General Appearance: Alert, WD/WN, Moderate Distress Eye Exam: Bilateral Eye: Normal Inspection Ears: Normal External Exam Ear Exam: Bilateral Ear: Auricle Normal Nose: Normal Inspection Throat/Mouth: Normal Lips, Normal Voice, No Airway Compromise Head: Atraumatic, Normocephalic Neck: Normal Inspection, Supple, Non-Tender, Full Range of Motion Respiratory/Chest: No Respiratory Distress, Decreased Breath Sounds (poor insp effort), Wheezing Cardiovascular: Normal Peripheral Pulses, Regular Rate, Rhythm Peripheral Pulses: 1+: Brachial (R) GI/Abdominal: Normal Bowel Sounds, Soft, Non-Tender, No Organomegaly, No Mass (Male) Exam: Deferred Rectal (Males) Exam: Deferred Back Exam: Decreased Range of Motion, Paraspinal Tenderness, Vertebral Tenderness Extremities: Normal Inspection, Normal Range of Motion, Non-Tender, No Pedal Edema, Normal Capillary Refill Neurological: Alert, Oriented, CN II-XII Intact, Normal Cognition, Normal Gait ( walked to thge nursing desk without help) Psychiatric: Normal Affect, Depressed Mood Skin Exam: Warm, Dry, Intact, Normal Color, No Rash Lymphatic: No Adenopathy Course - Vital Signs Text/Narrative:: 58 y.o.w.m with h/o COPD, on home O2, chronic low back pain, came with his to the ed after he fell backwards from a chair, which broke, from his weight(?) . No N/V/D or dizziness, Pt is a poor historian, denies ETOH abuse, it hurts to void. BP 120/67 Pulse 106 RR 20 Pulse ox 98% on 2 liters O2 Temp 36.8. PE: Obese 58 y.o.w.m with low back pain after fall from a unstable chair at home Imaging: CXR: Poss interstitial(? BNP), Lumbar spine: NAD Labs: UTI NEG, WBC Nl BNP 224 (there was not enough blood to to do all the tests , pt refused to try another vein) Impression: Chronic low back pain with exacerbation, Fall off a chair Tx: Morphine 2 mg im, Ice [place] 1 tabl Reexam:Improved, Pt was ambulating independently, on O2 by [place], to the garage Plan: D/C with with instructions Last Recorded V/S: Last Vital Signs Temp 36.8 C 05/25/18 22:15 Pulse 105 H 05/25/18 22:15 Resp 20 05/25/18 22:15 BP 109/92 H 05/25/18 22:15 Pulse Ox 97 05/25/18 22:15 - Orders/Labs/Meds Orders: Active Orders 24 hr Category Date Time Status Cooling Warming Measures [RC] ASDIRECTED Care 05/25/18 22:48 Active RT Aerosol Therapy [RC] ASDIRECTED Care 05/25/18 20:50 Active Chest 1V Frontal [CR] Stat Exams 05/25/18 20:59 Taken Lumbar Spine 2 or 3V [CR] Stat Exams 05/25/18 20:59 Taken UA W/MICROSCOPIC [URIN] Stat Lab 05/25/18 23:05 Ordered Ice Bag [Ice Therapy] [OM.PC] Routine Oth 05/25/18 22:48 Ordered Labs: Laboratory Tests 05/25/18 05/25/18 05/25/18 Range/Units 22:20 22:20 22:20 WBC 6.8 (4.5-12.0) X10-3/uL RBC 4.25 L (4.30-5.75) x10(6)uL Hgb 13.0 (11.5-15.5) g/dL Hct 38.8 (30.0-51.3) % MCV 91.4 (80-96) fL MCH 30.6 (27.7-33.6) pg MCHC 33.5 (32.2-35.4) g/dL RDW 14.4 (11.5-15.5) % Plt Count 83 L (125-369) X10(3)uL MPV 9.5 (7.4-10.4) fL Add Manual Diff Yes Neutrophils % (Manual) 25 L (46-82) % Lymphocytes % (Manual) 72 H (13-37) % Monocytes % (Manual) 3 L (4-12) % Sodium 145 (135-145) mmol/L Potassium 4.1 (3.5-5.3) mmol/L Chloride 107 (100-110) mmol/L Carbon Dioxide 21 (21-32) mmol/L BUN 14 (7-18) mg/dL Creatinine 1.0 (0.70-1.30) mg/dL Est Cr Clr Drug Dosing 76.00 mL/min Estimated GFR (MDRD) > 60 (>60) BUN/Creatinine Ratio 14.0 (9-20) Glucose 107 (80-116) mg/dL Calcium 7.9 L (8.6-10.2) mg/dL NT-Pro-B Natriuret Pep 211 H (<=125) pg/mL Urine Color (YELLOW) Urine Appearance (CLEAR) Urine pH (5.0-6.5) Ur Specific [place] (1.010-1.025) Urine Protein (NEGATIVE) mg/dL Urine Glucose (UA) (NEGATIVE) mg/dL Urine Ketones (NEGATIVE) mg/dL Urine Occult Blood (NEGATIVE) Urine Nitrite (NEGATIVE) Urine Bilirubin (NEGATIVE) Urine Urobilinogen (NEGATIVE) mg/dL Ur Leukocyte Esterase (NEGATIVE) Urine RBC (0) Urine WBC (0) Ur Squamous Epith Cells (NS,R,O) Urine Bacteria (NS) 05/25/18 Range/Units 23:05 WBC (4.5-12.0) X10-3/uL RBC (4.30-5.75) x10(6)uL Hgb (11.5-15.5) g/dL Hct (30.0-51.3) % MCV (80-96) fL MCH (27.7-33.6) pg MCHC (32.2-35.4) g/dL RDW (11.5-15.5) % Plt Count (125-369) X10(3)uL MPV (7.4-10.4) fL Add Manual Diff Neutrophils % (Manual) (46-82) % Lymphocytes % (Manual) (13-37) % Monocytes % (Manual) (4-12) % Sodium (135-145) mmol/L Potassium (3.5-5.3) mmol/L Chloride (100-110) mmol/L Carbon Dioxide (21-32) mmol/L BUN (7-18) mg/dL Creatinine (0.70-1.30) mg/dL Est Cr Clr Drug Dosing mL/min Estimated GFR (MDRD) (>60) BUN/Creatinine Ratio (9-20) Glucose (80-116) mg/dL Calcium (8.6-10.2) mg/dL NT-Pro-B Natriuret Pep (<=125) pg/mL Urine Color Yellow (YELLOW) Urine Appearance Clear (CLEAR) Urine pH 5.0 (5.0-6.5) Ur Specific [place] 1.020 (1.010-1.025) Urine Protein Negative (NEGATIVE) mg/dL Urine Glucose (UA) Normal (NEGATIVE) mg/dL Urine Ketones Negative (NEGATIVE) mg/dL Urine Occult Blood Negative (NEGATIVE) Urine Nitrite Negative (NEGATIVE) Urine Bilirubin Negative (NEGATIVE) Urine Urobilinogen Normal (NEGATIVE) mg/dL Ur Leukocyte Esterase Negative (NEGATIVE) Urine RBC 0-5 (0) Urine WBC 0-5 (0) Ur Squamous Epith Cells Rare (NS,R,O) Urine Bacteria Few H (NS) Meds: Medications Discontinued Medications Generic Name Dose Route Start Last Admin Trade Name Freq PRN Reason Stop Dose Admin Hydrocodone Bitart/Acetaminophen 1 tab 05/25/18 22:56 05/25/18 23:01 [place] 325-5 Mg PO 05/25/18 22:57 1 tab ONETIME ONE Administration Albuterol/Ipratropium 3 ml 05/25/18 20:50 05/25/18 21:43 Duoneb 3.0-0.5 Mg/3 Ml NEB 05/25/18 20:51 3 ml ONETIME ONE Administration Morphine Sulfate 2 mg 05/25/18 22:19 05/25/18 22:27 Morphine IM 05/25/18 22:20 2 mg ONETIME STA Administration Departure - Departure Time of Disposition: 23:02 Disposition: Home, Self-Care 01 Condition: Good Clinical Impression: Back pain Qualifiers: Back pain location: low back pain Chronicity: chronic Back pain laterality: midline Sciatica presence: without sciatica Qualified Code(s): M54.5 - Low back pain - Discharge Information Prescriptions: Acetaminophen/HYDROcodone [[place] 325-5 MG] 1 tab PO Q6H PRN #6 tablet PRN Reason: for severe pain only Instructions: Back Pain, Adult Referrals: PCP,None [Primary Care Provider] - Forms: ED Department Discharge Additional Instructions: Please hold Metoprolol for 5 days till your are reevaluated by your PMD this Friday. Please apply ICE to your lower back. Please come back if your symptoms get worse acutely. - My Orders Last 24 Hours: My Active Orders 05/25/18 20:50 RT Aerosol Therapy [RC] ASDIRECTED 05/25/18 20:59 Chest 1V Frontal [CR] Stat Lumbar Spine 2 or 3V [CR] Stat 05/25/18 22:48 Cooling Warming Measures [RC] ASDIRECTED Ice Bag [Ice Therapy] [OM.PC] Routine 05/25/18 23:05 UA W/MICROSCOPIC [URIN] Stat - Assessment/Plan Last 24 Hours: My Active Orders 05/25/18 20:50 RT Aerosol Therapy [RC] ASDIRECTED 05/25/18 20:59 Chest 1V Frontal [CR] Stat Lumbar Spine 2 or 3V [CR] Stat 05/25/18 22:48 Cooling Warming Measures [RC] ASDIRECTED Ice Bag [Ice Therapy] [OM.PC] Routine 05/25/18 23:05 UA W/MICROSCOPIC [URIN] Stat
[2018-05-25] MEDS: Morphine 2 MG/ML Syringe IM STA ×2 (22:26→22:27)
[2018-05-25] MEDS ORDERED: Acetaminophen/HYDROcodone 325-5 MG Tab PO ONE (22:56)
[2018-05-26 10:12] VITALS: BP 132/78
== END 2018-05-25 23:45 | disposition home or self-care (01) ==
LOC: FB.ED 20:38
DX: M54.5 Low back pain (principal); G89.29 Other chronic pain; I11.0 Hypertensive heart disease with heart failure; I50.9 Heart failure, unspecified; J44.9 Chronic obstructive pulmonary disease, unspecified; F41.9 Anxiety disorder, unspecified; Z88.5 Allergy status to narcotic agent; Z79.82 Long term (current) use of aspirin; Z79.899 Other long term (current) drug therapy; Z99.81 Dependence on supplemental oxygen; W07.XXXA Fall from chair, initial encounter
CPT/HCPCS: 36415; 71045; 72100; 80048; 81001; 83880; 85025; 94640; 99284; A9270; J2270; J7620

== ENCOUNTER 2018-12-22 12:18 | Emergency (ER) | payer MEDICAID ==
[2018-12-22] MEDS ORDERED: hydrOXYzine HCl 50 MG/ML SDV IM ONE ×2 (12:43→13:17)
[2018-12-22] MEDS ORDERED: Ondansetron 8 MG Tab.DIS PO ONE ×2 (12:43→13:18)
[2018-12-22] MEDS ORDERED: SUMAtriptan 6 MG/0.5 ML SDV SUBCUT ONE ×2 (12:43→13:17)
--- NOTE | 2018-12-22 12:43 | EDM.PDOC ---
ED HPI GENERAL MEDICAL PROBLEM - General Stated Complaint: HEAD ACHE Time Seen by Provider: 12/22/18 12:21 Source of Information: Reports: Patient, Family History Limitations: Reports: No Limitations - History of Present Illness INITIAL COMMENTS - FREE TEXT/NARRATIVE: 58 y.o.w m with multiple medical issues, including COPD, ETOH abuse, walked to the ed from the garage side to the ed c/o the worst migraine headache ever with Nausea, no vomiting, requesting morphine or Demerol, Zofran and Vistaril, which "took care of his H/A" in the past. he drank last night and this morning hard liquor, amount(?). He denied trauma. Pt had his moth full of tobacco chew as he arrived here in the ed. No V/D no dizziness or any acute medical issues. BP 127/ 81 RR 18 Pulse ox 98% on RA. temp 36.8 Pulse 87 Onset Date: 12/22/18 Onset Time: 05:00 Duration: Hour(s):, Getting Worse, Intermittent Location: Reports: Head Quality: Reports: Ache, Dull, Pressure, Throbbing, Other (worst headache ever) Improves with: Reports: Rest, Other (dark room) Worsens with: Reports: Other (breight room/environment) Context: Reports: Other (H/.O migraine H/A) Associated Symptoms: Reports: Malaise, Other (nausea) Headache Pain Score (Numeric/FACES): 10 - Related Data Allergies Allergy/AdvReac Type Severity Reaction Status Date / Time ketorolac [From Toradol] Allergy Vomiting Verified 12/22/18 12:21 nalbuphine [From Nubain] Allergy Rash Verified 12/22/18 12:21 bee sting Allergy Airway Uncoded 12/22/18 12:21 Tightness Home Meds: Home Meds Nitroglycerin [Nitrostat] 0.4 mg SL ASDIRECTED PRN 03/24/17 [History] Clopidogrel [Plavix] 75 mg PO DAILY 03/28/17 [History] Aspirin 81 mg PO DAILY 06/17/17 [History] Budesonide/Formoterol Fumarate [Symbicort 160-4.5 Mcg Inhaler] 1 puff INH DAILY PRN 06/25/17 [History] predniSONE 20 mg PO WITHBREAKFAST 07/27/17 [History] traMADol [Ultram] 50 mg PO BID PRN 03/26/18 [History] diazePAM [Valium] 5 mg PO BID 09/15/18 [History] Gemfibrozil 600 mg BID 12/22/18 [History] Isosorbide Mononitrate [Imdur] 60 mg PO DAILY 12/22/18 [History] Metoprolol Succinate [Toprol XL 100mg] 200 mg DAILY 12/22/18 [History] Potassium Chloride 10 meq PO DAILY 12/22/18 [History] Ramipril [Altace] 2.5 mg PO DAILY 12/22/18 [History] Rosuvastatin [Crestor] 40 mg PO DAILY 12/22/18 [History] Past Medical History HEENT History: Reports: Cataract, Impaired Vision Other HEENT History: wears glasses Cardiovascular History: Reports: Angina, Bypass, CAD, Heart Failure, High Cholesterol, Hypertension, [place], PTCA, Stents Respiratory History: Reports: COPD, Sleep Apnea Other Respiratory History: supplemental oxygen at home Gastrointestinal History: Reports: GERD Musculoskeletal History: Reports: Fracture, Other (See Below) Other Musculoskeletal History: chronic pain, hx fx L wrist Neurological History: Reports: Migraines Psychiatric History: Reports: Anxiety, Panic Attack, PTSD Endocrine/Metabolic History: Reports: Obesity/BMI 30+ Hematologic History: Reports: Blood Transfusion(s) - Infectious Disease History Infectious Disease History: Reports: Chicken Pox, Measles, Mumps - Past Surgical History HEENT Surgical History: Reports: None Cardiovascular Surgical History: Reports: Coronary Artery Bypass, Coronary Artery Stent Other Cardiovascular Surgeries/Procedures: 10 stents with 3 vessel CABG GI Surgical History: Reports: Appendectomy, Other (See Below) Other GI Surgeries/Procedures: exploratory lap Musculoskeletal Surgical History: Reports: None Social & Family History - Family History Family Medical History: Noncontributory - Tobacco Use Smoking Status *Q: Current Every Day Smoker Years of Tobacco use: 40 Packs/Tins Daily: 0.3 - Caffeine Use Caffeine Use: Reports: Coffee - Recreational Drug Use Recreational Drug Use: No ED ROS GENERAL - Review of Systems Review Of Systems: See Below Constitutional: Reports: Other (headache) HEENT: Reports: No Symptoms Respiratory: Reports: No Symptoms Cardiovascular: Reports: No Symptoms Endocrine: Reports: No Symptoms GI/Abdominal: Reports: Nausea : Reports: No Symptoms Musculoskeletal: Reports: No Symptoms Skin: Reports: No Symptoms Neurological: Reports: Headache (worst headache ever. ) Psychiatric: Reports: No Symptoms Hematologic/Lymphatic: Reports: No Symptoms Immunologic: Reports: No Symptoms - Physical Exam Exam: See Below Exam Limited By: Other (headacche, strong ETOH odor) General Appearance: Alert, Mild Distress, Moderate Distress, Obese Eye Exam: Bilateral Eye: Normal Inspection Ears: Normal External Exam Nose: Normal Inspection, Normal Mucosa Throat/Mouth: Normal Inspection, Normal Lips, Normal Voice, No Airway Compromise , Other (dry mucosal membrane, poor dentition) Head Exam: Atraumatic, Normocephalic Neck: Normal Inspection, Supple, Non-Tender, Full Range of Motion Respiratory/Chest: No Respiratory Distress, Lungs Clear, Normal Breath Sounds, No Accessory Muscle Use Cardiovascular: Normal Peripheral Pulses, Regular Rate, Rhythm, No Edema, No Gallop, No Murmur GI/Abdominal: Normal Bowel Sounds, Soft, Non-Tender, No Organomegaly (Male) Exam: No Hernia, Normal Inspection Rectal (Males) Exam: Deferred Neuro Exam (Abbreviated): Alert, Oriented, CN II-XII Intact, Normal Cognition, Normal Gait Back Exam: Normal Inspection, Full Range of Motion Extremities: Normal Inspection, Normal Range of Motion, Non-Tender, No Pedal Edema, Normal Capillary Refill Psychiatric: Normal Affect, Normal Mood Skin Exam: Warm, Dry, Intact, Pallor Course - Vital Signs Text/Narrative:: 58 y.o.w m with multiple medical issues, including COPD and ETOH abuse, last drink-hard liquor before midnight, [facility]/o the worst migraine headache ever with Nausea, no vomiting, requesting morphine or Demerol Zofran and Vistaril, which took care of his H/A in the past. He denied trauma. Pt had his moth full of tobacco chew as he arrived here in the ed. No V/D no dizziness or any acute medical issues. BP 127/81 RR 18 Pulse ox 98% on RA. temp 36.8 Pulse 87 PE: Morbid obese, pale appearing, with nausea and strong ETOH odor. Labs: Lab was not able to get blood initially, then he refused. After Pt passed out on the floor, it was was attempted to place an iv and get blood. However, after multiple attempts to place an I.V by anesthesia and the nurses, 2 I.Os were placed. Pt suddenly "woke up" stating "no more procedure, no more BP check no more toughing him for any procedure, the staff did not touch im any more, the I.Os were removed, however. Impression: H/O COPD, H/A worst ever DDx: Migraine, Tension H/A . S/P agitation ves Sz vs Syncopal episode, possible drug seeking behavior Tx: Vistaril, Imitrex, Zofran, then Ativan for Sz vs agitation Reexam: After the patient received Vistaril, which he received in ham past for anxiety/H/A, Zofran for nausea and Imitrex he was doing fine for a few min. Then he started shaking, peripheral tremor, no tongue bite, no spontaneous urinations. Pt received Ativan for poss Sz vs agitation. peripheral tremor subsided. Then he was sitting in the bed and requested he wants 4 mg of morphine. I agreed to 2 Morphine since there was no I.V access. As left the room ordering shortly and came back a few min later, he was laying himself on the floor, not responding to verbal and pain stimuli. Me, ED, was concern about aspiration in this unconscious patient. Anesthesia was called. nurses, including anesthesia attempted to place an i.V. an IO was placed in his left and right prox tibia, when the patient suddenly "woke up" refusing any Tx or care unless he gets 6 mg of morphine i m. I stated, if he dies, he for a reason and nobody is getting sued. Pt was Ox3 and appeared able to make his decision. He agreed at 2.20 pm to go by air to . Pt was not intubated and did not receive more sedating meds. Pt was explained the SE from Morphine, like hypoxemia in a patient wit COPD and decrease of BP, without having an IV line in place. As the flight crew arrived, he signed out AMA. His agreed to take him home and she will observe him closely and will bring him back by EMS if needed. I.Os were taken out before he left the ED. Mann Tee was called and has spoken with the patient in length explaining the situation again in detail. 2.10 pm Consultation: Dr. Lujan, [facility] accepted the pt for transfer and further care 2.20 pm Pt accepted to be flown to [facility] by air for further care 2.25 pm: Pt requested 6 mg of Morphine IM. No IV is in place, his BP is 126/87 RR 16 Pulse 89, Pulse ox 100% on RA, no morphine was given in the ED due to potential devastating side effects on this patient. Pt stated, "if you ([facility] ) give me 6 mg of morphine, i will not weston you" (!) Last Recorded V/S: Last Vital Signs Temp 36.3 C 12/22/18 12:21 Pulse 82 12/22/18 13:37 Resp 16 12/22/18 13:37 BP 145/93 H 12/22/18 13:37 Pulse Ox 100 12/22/18 13:51 - Orders/Labs/Meds Labs: Laboratory Tests 12/22/18 12/22/18 Range/Units 14:00 14:30 WBC 9.6 (4.5-12.0) X10-3/uL RBC 5.41 (4.30-5.75) x10(6)uL Hgb 15.5 (11.5-15.5) g/dL Hct 49.2 (30.0-51.3) % MCV 90.9 (80-96) fL MCH 28.7 (27.7-33.6) pg MCHC 31.6 L (32.2-35.4) g/dL RDW 12.8 (11.5-15.5) % Plt Count 164 (125-369) X10(3)uL MPV 11.4 H (7.4-10.4) fL Add Manual Diff Yes Neutrophils % (Manual) 33 L (46-82) % Lymphocytes % (Manual) 64 H (13-37) % Monocytes % (Manual) 2 L (4-12) % Eosinophils % (Manual) 1 (0-5) % Sodium 141 (135-145) mmol/L Potassium 4.5 (3.5-5.3) mmol/L Chloride 105 (100-110) mmol/L Carbon Dioxide 22 (21-32) mmol/L BUN 13 (7-18) mg/dL Creatinine TNP Est Cr Clr Drug Dosing TNP Estimated GFR (MDRD) TNP BUN/Creatinine Ratio TNP Glucose 89 (80-116) mg/dL Calcium TNP Magnesium Cancelled Meds: Medications Discontinued Medications Generic Name Dose Route Start Last Admin Trade Name Mora PRN Reason Stop Dose Admin Hydroxyzine HCl 50 mg 12/22/18 12:43 12/22/18 12:56 Vistaril IM 12/22/18 12:44 50 mg ONETIME ONE Administration Hydroxyzine HCl 50 mg 12/22/18 13:17 12/22/18 14:41 Vistaril IM 12/22/18 13:18 Not Given ONETIME ONE Lorazepam Confirm 12/22/18 13:03 12/22/18 14:46 Ativan Administered 12/22/18 13:04 Not Given Dose 2 mg .ROUTE .STK-MED ONE Lorazepam 2 mg 12/22/18 13:30 12/22/18 13:04 Ativan IM 12/22/18 13:31 2 mg ONETIME ONE Administration Morphine Sulfate 2 mg 12/22/18 13:18 12/22/18 14:40 Morphine IM 12/22/18 13:19 Not Given ONETIME ONE Ondansetron HCl 8 mg 12/22/18 12:43 12/22/18 12:57 Zofran Odt PO 12/22/18 12:44 8 mg ONETIME ONE Administration Ondansetron HCl 8 mg 12/22/18 13:18 12/22/18 14:41 Zofran Odt PO 12/22/18 13:19 Not Given ONETIME ONE Sumatriptan Succinate 6 mg 12/22/18 12:43 12/22/18 12:55 Imitrex SUBCUT 12/22/18 12:44 6 mg ONETIME ONE Administration Sumatriptan Succinate 6 mg 12/22/18 13:17 12/22/18 14:41 Imitrex SUBCUT 12/22/18 13:18 Not Given ONETIME ONE Departure - Departure Time of Disposition: 13:27 Disposition: Against Medical Advice 07 Condition: Good Clinical Impression: Noncompliance - Discharge Information Referrals: PCP,Not In Area [Primary Care Provider] - Forms: ED Department Discharge
[2018-12-22] MEDS ORDERED: LORazepam 2 MG/ML SDV ONE (13:03)
[2018-12-22] MEDS ORDERED: Morphine 2 MG/ML Syringe IM ONE (13:18)
[2018-12-22] MEDS ORDERED: LORazepam 2 MG/ML SDV IM ONE (13:30)
[2018-12-22 21:24] VITALS: BP 145/93
== END 2018-12-22 16:02 | disposition left against medical advice (07) ==
LOC: FB.ED 12:18
DX: R51 Headache (principal); J44.9 Chronic obstructive pulmonary disease, unspecified; Z91.19 Patient's noncompliance with other medical treatment and regimen; I50.9 Heart failure, unspecified; E66.9 Obesity, unspecified; F17.210 Nicotine dependence, cigarettes, uncomplicated; Z88.8 Allergy status to other drugs, medicaments and biological substances; Z91.030 Bee allergy status; Z79.899 Other long term (current) drug therapy
CPT/HCPCS: 36415; 80048; 85025; 96372; 99284; A9270; J2060; J3030; J3410

== ENCOUNTER 2019-01-31 20:55 | Emergency (ER) | payer MEDICAID ==
--- NOTE | 2019-01-31 21:18 | EDM.PDOC ---
ED HPI GENERAL MEDICAL PROBLEM - General Stated Complaint: SOB Time Seen by Provider: 01/31/19 21:00 Source of Information: Reports: Patient, Significant Other - History of Present Illness INITIAL COMMENTS - FREE TEXT/NARRATIVE: pt comes in to ER ambulatory with non-specific complaints, apparently he has been doing a lot of walking today also doing this while drinking several beers , and since arounf 3 PM has been noticing back / shoulder / chest pains , pt then states this is chronic for him but got worse today , he feels SOB with this denies cough fever chills or any other associated sx or concerns. pt has Hx of COPD and CAD , he is O2 dependant and continue to abuse tobacco. . - Related Data Allergies Allergy/AdvReac Type Severity Reaction Status Date / Time ketorolac [From Toradol] Allergy Vomiting Verified 01/31/19 21:15 nalbuphine [From Nubain] Allergy Rash Verified 01/31/19 21:15 bee sting Allergy Airway Uncoded 01/31/19 21:15 Tightness Home Meds: Home Meds Nitroglycerin [Nitrostat] 0.4 mg SL ASDIRECTED PRN 03/24/17 [History] Clopidogrel [Plavix] 75 mg PO DAILY 03/28/17 [History] Aspirin 81 mg PO DAILY 06/17/17 [History] Budesonide/Formoterol Fumarate [Symbicort 160-4.5 Mcg Inhaler] 1 puff INH DAILY PRN 06/25/17 [History] predniSONE 20 mg PO WITHBREAKFAST 07/27/17 [History] traMADol [Ultram] 50 mg PO BID PRN 03/26/18 [History] diazePAM [Valium] 5 mg PO BID 09/15/18 [History] Gemfibrozil 600 mg BID 12/22/18 [History] Isosorbide Mononitrate [Imdur] 60 mg PO DAILY 12/22/18 [History] Metoprolol Succinate [Toprol XL 100mg] 200 mg DAILY 12/22/18 [History] Potassium Chloride 10 meq PO DAILY 12/22/18 [History] Ramipril [Altace] 2.5 mg PO DAILY 12/22/18 [History] Rosuvastatin [Crestor] 40 mg PO DAILY 12/22/18 [History] Past Medical History HEENT History: Reports: Cataract, Impaired Vision Other HEENT History: wears glasses Cardiovascular History: Reports: Angina, Bypass, CAD, Heart Failure, High Cholesterol, Hypertension, [place], PTCA, Stents Respiratory History: Reports: COPD, Sleep Apnea Other Respiratory History: supplemental oxygen at home Gastrointestinal History: Reports: GERD Musculoskeletal History: Reports: Fracture, Other (See Below) Other Musculoskeletal History: chronic pain, hx fx L wrist Neurological History: Reports: Migraines Psychiatric History: Reports: Anxiety, Panic Attack, PTSD Endocrine/Metabolic History: Reports: Obesity/BMI 30+ Hematologic History: Reports: Blood Transfusion(s) - Infectious Disease History Infectious Disease History: Reports: Chicken Pox, Measles, Mumps - Past Surgical History HEENT Surgical History: Reports: None Cardiovascular Surgical History: Reports: Coronary Artery Bypass, Coronary Artery Stent Other Cardiovascular Surgeries/Procedures: 10 stents with 3 vessel CABG GI Surgical History: Reports: Appendectomy, Other (See Below) Other GI Surgeries/Procedures: exploratory lap Musculoskeletal Surgical History: Reports: None Social & Family History - Family History Family Medical History: Noncontributory - Caffeine Use Caffeine Use: Reports: Coffee ED ROS GENERAL - Review of Systems Review Of Systems: See Below Constitutional: Reports: No Symptoms Respiratory: Reports: Shortness of Breath Cardiovascular: Reports: Chest Pain GI/Abdominal: Reports: No Symptoms Musculoskeletal: Reports: Neck Pain, Back Pain, Joint Pain Skin: Reports: No Symptoms Neurological: Reports: No Symptoms ED EXAM, GENERAL - Physical Exam Exam: See Below Exam Limited By: No Limitations General Appearance: Alert Throat/Mouth: Normal Inspection, Normal Oropharynx Head: Atraumatic Neck: Normal Inspection Respiratory/Chest: No Respiratory Distress, Wheezing Cardiovascular: Regular Rate, Rhythm, No JVD, No Murmur. No: No Edema GI/Abdominal: Normal Bowel Sounds, Soft, Non-Tender Course - Vital Signs Text/Narrative:: EKG shows no acute changes, trop is neg, labs were reviewed, pt refused CXR / the nebs also the solumedrol. pt has chronic pain and was asked to follow on this issue with his PCP and get the usual refills on his pain meds from his physician. pt is medically stable ( based on what we know so far ) for discharge with followup. evaluation is incomplete and pt expressed understanding of this . - Orders/Labs/Meds Orders: Active Orders 24 hr Category Date Time Status EKG Documentation Completion [RC] ASDIRECTED Care 03/17/19 21:20 Active RT Aerosol Therapy [RC] ASDIRECTED Care 01/31/19 21:20 Active Chest 1V Frontal [CR] Stat Exams 01/31/19 21:20 Ordered EKG 12 Lead [EK] Routine Ther 01/31/19 21:20 Ordered Labs: Laboratory Tests 01/31/19 01/31/19 01/31/19 Range/Units 21:40 21:40 21:40 WBC 9.3 (4.5-12.0) X10-3/uL RBC 4.89 (4.30-5.75) x10(6)uL Hgb 14.9 (13.5-17.8) g/dL Hct 44.4 (30.0-51.3) % MCV 90.8 (80-96) fL MCH 30.5 (27.7-33.6) pg MCHC 33.6 (32.2-35.4) g/dL RDW 13.4 (11.5-15.5) % Plt Count 219 (125-369) X10(3)uL MPV 9.2 (7.4-10.4) fL Neut % (Auto) 35.7 L (46-82) % Lymph % (Auto) 55.8 H (13-37) % [place] % (Auto) 6.3 (4-12) % Eos % (Auto) 2 (1.0-5.0) % Baso % (Auto) 0 (0-2) % Neut # (Auto) 3.3 (1.6-8.3) # Lymph # (Auto) 5.2 H (0.6-5.0) # [place] # (Auto) 0.6 (0.0-1.3) # Eos # (Auto) 0.2 (0.0-0.8) # Baso # (Auto) 0.0 (0.0-0.2) # Sodium 144 (135-145) mmol/L Potassium 3.6 (3.5-5.3) mmol/L Chloride 108 (100-110) mmol/L Carbon Dioxide 22 (21-32) mmol/L BUN 13 (7-18) mg/dL Creatinine 0.8 (0.70-1.30) mg/dL Est Cr Clr Drug Dosing TNP Estimated GFR (MDRD) > 60 (>60) BUN/Creatinine Ratio 16.3 (9-20) Glucose 123 H (80-116) mg/dL Calcium 7.8 L (8.6-10.2) mg/dL Total Bilirubin 0.3 (0.1-1.3) mg/dL AST 34 H D (5-25) IU/L ALT 46 H D (12-36) U/L Alkaline Phosphatase 115 H (56-112) IU/L Troponin I < 0.017 L (<0.017-0.056) ng/mL Total Protein 6.9 (6.0-8.0) g/dL Albumin 3.2 (3.2-4.6) g/dL Globulin 3.7 g/dL Albumin/Globulin Ratio 0.9 Meds: Medications Discontinued Medications Generic Name Dose Route Start Last Admin Trade Name Freq PRN Reason Stop Dose Admin Albuterol/Ipratropium 3 ml 01/31/19 21:20 Duoneb 3.0-0.5 Mg/3 Ml NEB 01/31/19 21:21 ONETIME ONE Methylprednisolone Sodium Succinate 125 mg 01/31/19 21:20 Solu-Medrol IM 01/31/19 21:21 ONETIME ONE Ondansetron HCl 4 mg 01/31/19 21:21 Zofran Odt PO 01/31/19 21:22 ONETIME ONE Departure - Departure Time of Disposition: 22:21 Disposition: Home, Self-Care 01 Clinical Impression: Chronic back pain - Discharge Information - My Orders Last 24 Hours: My Active Orders 01/31/19 21:20 EKG Documentation Completion [RC] ASDIRECTED RT Aerosol Therapy [RC] ASDIRECTED Chest 1V Frontal [CR] Stat EKG 12 Lead [EK] Routine - Assessment/Plan Last 24 Hours: My Active Orders 01/31/19 21:20 EKG Documentation Completion [RC] ASDIRECTED RT Aerosol Therapy [RC] ASDIRECTED Chest 1V Frontal [CR] Stat EKG 12 Lead [EK] Routine
[2019-01-31] MEDS ORDERED: methylPREDNISolone Sodium Succinate 125 MG/2 ML SDV IM ONE (21:20)
[2019-01-31] MEDS ORDERED: Albuterol/Ipratropium 3.0-0.5 MG/3 ML Neb Soln NEB ONE (21:20)
[2019-01-31] MEDS ORDERED: Ondansetron 4 MG Tab.DIS PO ONE (21:21)
[2019-01-31 23:06] VITALS: BP 134/83
== END 2019-01-31 22:30 | disposition home or self-care (01) ==
LOC: FB.ED 20:55
DX: M54.9 Dorsalgia, unspecified (principal); G89.29 Other chronic pain; J44.9 Chronic obstructive pulmonary disease, unspecified; Z88.8 Allergy status to other drugs, medicaments and biological substances; Z79.899 Other long term (current) drug therapy; Z79.82 Long term (current) use of aspirin
CPT/HCPCS: 36415; 80053; 84484; 85025; 93005; 99283-25